=== PATIENT | female | born 1955 | race Caucasian/White ===

== ENCOUNTER 2023-10-07 09:00 | Emergency (ER) | payer MEDICARE, OTHER, SELFPAY ==
--- NOTE | 2023-10-07 09:05 | ED.GENMED ---
History of Present Illness
General
Chief Complaint: Heart Rate Problem
Time Seen by Provider: 10/07/23 09:02
History of Present Illness
History of Present Illness:
HPI: The patient presents with intermittent palpitations, chest discomfort, and shortness of breath. She came in by ambulance however when EMS arrived she was in a normal sinus rhythm. Currently she overall feels improved. She has minimal chest
discomfort described as tightness currently. She reports some chest tightness that is exertional in nature. However she also states that she has been under a lot of stress with her who is back home now after recent cardiac bypass.
EXAM:
GENERAL: Well appearing in no distress
HEENT: Moist oral mucosa
CARDIOVASCULAR: No murmurs, normal heart rate, regular rhythm, No chest wall tenderness
PULMONARY: No respiratory distress, breath sounds are clear and equal
ABDOMEN: Soft with no peritoneal signs, no tenderness
NEUROLOGIC: Excellent strength all extremities, no coordination deficits
PSYCHIATRIC: Appropriate mental status, normal insight and judgement
EXTREMITIES: Nontender, no edema, moves all extremities equally
SKIN: No rash, no lesions
TIME OF INITIAL ENCOUNTER: 9:15 AM
NUMBER AND COMPLEXITY OF PROBLEMS ADDRESSED AT THE ENCOUNTER
� Chronic conditions affecting care: High blood pressure, breast cancer, has had kidney stones
� Acute Exacerbation and/or Progression of Chronic Illness: This is an acute problem
� Differential Diagnosis includes: Anxiety, ACS, pneumonia unlikely, CHF unlikely
AMOUNT AND/OR COMPLEXITY OF DATA TO BE REVIEWED AND ANALYZED
� I performed an independent evaluation of and my interpretation is:
EKG: Sinus 74, left axis deviation, nonspecific ST abnormality
CT:
X-rays: Chest x-ray shows no acute abnormality
Laboratory Studies: CBC is unremarkable, chemistries and 2 troponins are unremarkable
Other:
� Review of other/old records: Echo from 2020 showed stage I diastolic with EF of 60 to 65% and no significant valvular disease
� Clinical information was obtained by an independent historian: None needed
� Prescriptions/Medications Considered but not given:
� Further testing considered but not performed:
RISK OF COMPLICATIONS AND/OR MORBIDITY OR MORTALITY OF PATIENT MANAGEMENT
� Social determinants of health affecting care: Lives at home
� Discussion with other providers: I discussed case with Dr. Mcnair who evaluated the patient in the ED. He does recommend an additional troponin to be checked in the afternoon.
� Escalation of care including admission/observation vs risk of discharge considered: 2 troponins are negative. She does have significant stressors at home. Dr. Mcnair recommended close outpatient follow-up and he will
likely perform stress nuclear in the near future.
Past History
Past History
ED Past Medical History: Cancer (Breast carcinoma), HTN and Other (Kidney stone)
ED Past Surgical History: Other (Left mastectomy with reconstruction and breast implant)
Social History
Tobacco: Non-smoker
Alcohol: None
Drug: None
Living: with family
Employment: Employed
Family History
Family History: Unable to obtain
Phy Exam
Physical Exam
Physical Exam:
See HPI
Course
Orders/Labs/Results
Orders:
Orders
10/07/23 09:03
Electrocardiogram (*1) Urgent
Reason for Study: Chest Pain
EKG- Treatment ONCE
CR Chest - 2 Views Urgent
Comment:
Reason For Exam: sob
10/07/23 09:04
Basic Metabolic Panel Urgent
Complete Blood Count/With Diff Urgent
Magnesium Urgent
NT-proBNP Urgent
TSH Reflex To Free T4 Urgent
Troponin I Urgent
10/07/23 11:36
COVID-19 Antigen Urgent
Source: Nasal Swab
10/07/23 11:51
Holter Monitor and Scan*(3) Routine
Reason for Study: palpitations
Comment: 48 hr
10/07/23 12:46
Troponin I Urgent
10/07/23 13:19
EKG [Electrocardiogram (*1)] Urgent
Reason for Study: Chest Pain
EKG- Treatment ONCE
Abnormal Lab Results
10/07/23
09:04
MCH 31.4 H pg
(27.0-31.0)
Absolute Lymphs (auto) 1.1 L 10^3/uL
(1.2-3.4)
Lymphocytes % 15.5 L %
(20.5-51.1)
Potassium 3.4 L mmol/L
(3.5-5.1)
BUN 21 H mg/dl
(7-17)
Creatinine 0.5 L mg/dL
(0.6-1.0)
Glucose 111 H mg/dl
(70-99)
10/07/23 09:04
10/07/23 09:04
Vital Signs
Initial and Last Documented VS:
Initial Vital Signs
Temp Pulse Resp BP Pulse Ox
98.1 F 68 20 139/85 97
10/07/23 09:15 10/07/23 09:15 10/07/23 09:15 10/07/23 09:15 10/07/23 09:15
Last Documented Vital Signs
Temp Pulse Resp BP Pulse Ox
98.1 F 70 18 111/76 96
10/07/23 09:15 10/07/23 11:32 10/07/23 11:32 10/07/23 11:32 10/07/23 11:32
*Critical Care Note
Total Time (30-74mins, 75-104mins- exclusive of procedures): Not Applicable
ED Attending Note
-
Portions of this chart may have been created with voice recognition software.� Occasional wrong word or��sound alike� substitutions may have occurred due to the inherent limitations of voice recognition software.
Discharge Plan
Departure
Prescriptions:
No Action
chlorthalidone 25 mg Tablet
25 mg PO DAILY
aspirin 81 mg Tablet,Delayed Release (Dr/Ec)
324 mg PO ONCE PRN (Reason: chest pain)
metoprolol succinate 25 mg Tablet Extended Release 24 Hr
25 mg PO DAILY
ergocalciferol (vitamin D2) 1,250 mcg (50,000 unit) Capsule
1,250 mcg PO TH@0800
Referrals:
Cale Silverio MD [Family Provider] -
Interventions
Interventions:
*Risk Screen - Suicide Last Done: 10/07/23 09:15
*General Assessment Last Done: 10/07/23 09:15
*Neglect/Abuse Screening Last Done: 10/07/23 09:15
*ED COVID-19 Vaccine History Last Done: 10/07/23 09:29
ED- Cardiac Assessment Last Done: 10/07/23 09:29
ED- Pulmonary Assessment Last Done: 10/07/23 09:29
Discharge Date and Time
Print Language: TAJIK
[2023-10-07 09:12] LABS: % Basophils 0.5 % (0-2); % Eosinophils 4.6 % (0-6); % Immature Granulocytes 0.4 % (0-0.5); % Lymphocytes 15.5 % (20.5-51.1); % Monocytes 7.2 % (1.7-9.3); % Neutrophils 71.8 % (42.2-75.2); Absolute Eosinophils 0.3 10^3/uL (0-0.7); Absolute Lymphocytes 1.1 10^3/uL (1.2-3.4); Absolute Monocytes 0.5 10^3/uL (0.1-0.6); Absolute Neutrophils 5.3 10^3/uL (1.4-6.5); Hematocrit 41.8 % (37.0-47.0); Hemoglobin 14.6 g/dL (12.0-16.0); Mean Corp Hgb Conc. 34.9 g/dL (33.0-37.0); Mean Corpuscular Hgb 31.4 pg (27.0-31.0); Mean Corpuscular Volume 89.9 fL (81.0-99.0); Mean Platelet Volume 9.3 fL (7.4-10.4); Nucleated Red Blood Cells % 0 %; Platelet Count 252 10^3/uL (130-400); Red Blood Cell Count 4.65 10^6/uL (4.20-5.40); Red Cell Dist. Width 12.2 % (11.5-14.5); White Blood Cell Count 7.3 10^3/uL (4.8-10.8)
[2023-10-07 09:15] VITALS: BP 139/85
[2023-10-07 09:25] LABS: Blood Urea Nitrogen 21 mg/dl (7-17); Carbon Dioxide 30 mmol/L (22-30); Chloride 104 mmol/L (98-107); Glucose 111 mg/dl (70-99); Magnesium 2.1 mg/dl (1.6-2.3); Potassium 3.4 mmol/L (3.5-5.1); Sodium 140 mmol/L (135-145); eGFR > 60.00
[2023-10-07 09:29] VITALS: BMI 26.5
[2023-10-07 09:36] LABS: Troponin I < 0.012 ng/ml
[2023-10-07 10:12] LABS: TSH Reflex To Free T4 0.78 uIU/ml (0.47-4.68)
--- NOTE | 2023-10-07 10:57 | CON.CAR ---
Consultation
Consultation Request
Date/Time Consultation Requested: Oct 06 1029
Date/Time Consultation Performed: Oct 06 1056
Requesting Provider: ER physician
Performing Provider: Adalberto Mcnair
Reason for Consultation: chest tightness
Medical History
-
Chief Complaint: Chest tightness
History of Present Illness:
67-year-old female with history of hypertension and breast cancer who is coming in today for evaluation of chest tightness and palpitations. She tells me that over the last few days she had noticed worsening chest tightness. This could occur at
any time and would occur additionally with exertion. It felt worse when she was out walking with her . 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
Additionally, she tells me that her daughter is getting in approximately 1 week. She feels that she is under a tremendous amount of stress and has been feeling anxious about all of this that has been going on. She thinks that this could be
contributing to her symptoms. Further, she has had a negative stress echocardiogram approximately 6 months ago and ECG today is normal. Overall, when she initially came in she was continue to have some chest discomfort and ECG was normal sinus
rhythm. Initial lab work including troponins were negative. I discussed with her that I believe that this could be most likely related to stress and anxiety with her recently coming home as well as upcoming wedding of her daughter. She
she does think that this is likely a major contributor to the symptoms. However, because she has had worsening symptoms I discussed testing including coronary angiography versus nuclear exercise treadmill test. She would prefer to have the nuclear
exercise treadmill test as she thinks that these symptoms are most likely related to her anxiety and increased level of stress. I discussed with the ED physician to obtain 1 more troponin and if negative then we will proceed with nuclear exercise
treadmill test next week. I have in the meantime asked her to take it easy over the weekend with no significant exertion.
Past Medical History
Past Medical History: HTN and Other (Breast CA and kidney stone)
Past Surgical History: Other (left mastectomy )
Social History
Tobacco: Non-Smoker
Alcohol: None
Drug: None
Personal:
Living: With Family
Family History
Family History: Reviewed & Not Pertinent
Allergies / Home Medications
Allergy/AdvReac Type Severity Reaction Status Date / Time
Tetracyclines Allergy Unknown Unknown Verified 10/07/23 09:15
azithromycin Allergy becomes Verified 10/07/23 09:15
hyper,heart
pounds
cefadroxil [From Duricef] Allergy Unknown Verified 10/07/23 09:15
Cephalosporins Allergy Unknown Verified 10/07/23 09:15
doxycycline Allergy facial Verified 10/07/23 09:15
swelling
penicillin G Allergy Rash Verified 10/07/23 09:15
Penicillins Allergy facial Verified 10/07/23 09:15
rash as a
child
z-pack Allergy becomes Uncoded 10/07/23 09:15
hyper,heart
pounds
�Medication �Instructions �Recorded �Confirmed �Type
aspirin 81 mg tablet,delayed 324 mg PO ONCE PRN chest pain 10/07/23 10/07/23 History
release
chlorthalidone 25 mg tablet 25 mg PO DAILY 10/07/23 10/07/23 History
ergocalciferol (vitamin D2) 1,250 1,250 mcg PO TH@0800 10/07/23 10/07/23 History
mcg (50,000 unit) capsule
metoprolol succinate 25 mg 25 mg PO DAILY 10/07/23 10/07/23 History
tablet,extended release 24 hr
Review of Systems
-
All other systems: Negative unless noted
Physical Exam
Vital Signs
Temp Pulse Resp BP Pulse Ox
98.1 F 68 20 139/85 97
10/07/23 09:15 10/07/23 09:15 10/07/23 09:15 10/07/23 09:15 10/07/23 09:29
Lab Results
10/07/23 09:04
10/07/23 09:04
Troponin I < 0.012 ng/ml 10/07/23 09:04
Ycu-C-Hhklschjyxs Pept 24.0 pg/ml 10/07/23 09:04
Physical Exam
General: Well Developed and Well Nourished
HEENT: Normocephalic and Anicteric
Respiratory: Clear and Non Labored Respirations
Cardiac: S1/S2 and Regular Rhythm
GI: Soft
Musculoskeletal: No Clubbing, No Cyanosis, Edema and No Edema
Skin: Warm and Dry
Neuro: AO x 3
Psych: Calm
Impression / Plan
-
67-year-old female with history of hypertension and breast cancer who is coming in today for evaluation of chest tightness and palpitations. After discussion with the patient about her increased level of stress with her 's recent bypass
surgery and upcoming wedding of her daughter she does believe that this is most likely related to that stress and anxiety has been associated with that. Again, I discussed coronary angiography versus exercise nuclear stress test and she would
prefer a more noninvasive approach rather than undergoing a procedure at this point. She does believe that this is most likely related to the increased stress and anxiety that has been going on.
Chest tightness palpitations and SOB
- Nuclear exercise stress test October 10 12:20 pm if neg troponin
- follow up thereafter
- Holter Monitor 48 hr
TTE 05/04/2023 CONCLUSIONS
Normal left ventricular size and systolic function. No regional wall motion
abnormalities are seen. LV ejection fraction is 60-65% by visual assessment.
Mild concentric left ventricular hypertrophy. Normal diastolic function.
Normal right ventricular size and function.
Mild mitral regurgitation.
Compared to the previous echo 08/07/2020, there is no significant change.
Stress Echo Feb 2023: No echocardiographic evidence of ischemia
Data Reviewed
-
EKG: Tracing Personally Visualized and interpreted (sr)
Medical Tests (Nuc Med, Echo etc): Report Reviewed by me
Labs: Labs Reviewed by me
[2023-10-07 11:32] VITALS: BP 111/76
[2023-10-07 12:07] LABS: COVID-19 Antigen Negative (Negative)
[2023-10-07 12:50] VITALS: BP 109/69
[2023-10-07 13:31] LABS: Troponin I < 0.012 ng/ml
[2023-10-07 13:53] VITALS: BP 112/74
== END 2023-10-07 13:56 | disposition home or self-care (01) ==
LOC: EMR 09:00
PROVIDERS: EMERGENCY PHYSICIAN Emergency Medicine; FAMILY PHYSICIAN Family Medicine
DX: R00.2 Palpitations (principal); R07.89 Other chest pain; R06.02 Shortness of breath; I10 Essential (primary) hypertension; I34.0 Nonrheumatic mitral (valve) insufficiency; Z85.3 Personal history of malignant neoplasm of breast; Z87.442 Personal history of urinary calculi; Z90.12 Acquired absence of left breast and nipple
CPT/HCPCS: 99283; 71046; 80048; 83735; 83880; 84443; 84484; 85025; 87811; 93005; 93225; 93226

== ENCOUNTER → 2023-10-11 11:58 | Outpatient (REF) | payer MEDICARE, OTHER, SELFPAY | LOC: DHCBC/DCA 11:58 | PROVIDERS: ATTENDING PHYSICIAN Internal Medicine Cardiovascular Disease; FAMILY PHYSICIAN Family Medicine | DX: R94.31 Abnormal electrocardiogram [ECG] [EKG] (principal); I10 Essential (primary) hypertension; R06.09 Other forms of dyspnea; R00.2 Palpitations; R07.89 Other chest pain | CPT/HCPCS: 78452; 93017; A9500 ==

== ENCOUNTER 2023-10-18 07:30 | Day surgery (SDC) | payer MEDICARE, OTHER, SELFPAY ==
[2023-10-18] VITALS (14 sets, daily range): BP systolic 96–134; BP diastolic 55–73; BMI 28.0
[2023-10-18] MEDS: NSS 215 ML IV (08:18)
[2023-10-18 10:11] LABS: ACT-LR - POC 305 Seconds (116-155)
[2023-10-18] MEDS: NSS 108 IV (10:30)
--- NOTE | 2023-10-18 11:14 | ITS.CL.CATH ---
[facility] - Catheterization
Cardiac Catheterization
Procedure Report:
CARDIAC CATHETERIZATION AND ANGIOPLASTY REPORT
Date of Procedure: 10/18/2023
Referring: Adalberto Mcnair MD
Indication: Exertional dyspnea with abnormal nuclear stress test suggesting anterior ischemia
HEMODYNAMIC DATA
AO: 122/58
LV: 122/15
LEFT VENTRICULOGRAPHY: Normal left ventricular wall motion with EF 67%
CORONARY ANGIOGRAPHY
Dominance: Right
Left Main: Normal
LAD: Mild to moderate calcification of the proximal to mid LAD. There is 50% stenosis in the mid LAD spanning the takeoff of S2 and extending to the origin of the moderate-sized D1. There is a second 80% stenosis in the mid LAD distal to a twig
like D2
Circumflex: A moderate to large ramus intermedius has 30 to 40% proximal stenosis. The circumflex gives rise to a medium sized OM1 and a small OM 2 and has trivial luminal disease.
RCA: Large dominant vessel with 20% mid stenosis. The large PDA and large posterolateral system are free of disease.
Angioplasty: At the conclusion the diagnostic study, we proceeded with LAD intervention. Heparin was used for coagulation. Plavix 600 mg was administered the procedure conclusion. A 6 Trin[place] EBU 3.5 guide catheter was advanced to the left
coronary ostium. A BMW wire was advanced into the distal LAD. We attempted to advance a second BMW wire into the moderate-sized first diagonal branch as we would need to stent across this branch vessel. We were unable to get a wire into this
branch as the more proximal stenosis straightened out the tip of the coronary wire thereby not allowing us to access the diagonal branch. Predilatation of both mid LAD lesions was accomplished with serial inflations using a 2.25 x 12 trek balloon
to 12 suzie. We then placed a 3.25 x 23 Xience ESTRELLA into the LAD to cover both lesions. The stent was deployed at 14 suzie then postdilated with a 3.25 NC trek to 17 suzie. Angiography demonstrated an excellent result with no residual stenosis. The
moderate-sized D1 had some ostial plaque shift but remained patent with normal flow. The twig like D2 was flush occluded and was not worthy of rescue attempts as the vessel diameter was likely less than 1.0 mm. Patient had mild chest discomfort
likely due to combination of vessel stretching and loss of this twig like D2.
Closure Device: None-the procedure was performed via the right radial artery
Radiation (mGy): 355
DAP (cm2.Gy): 25.6
Fluoroscopy time: 10.5 minutes
CONCLUSIONS
1: Normal left ventricular function with EF 67%
2: Single-vessel CAD as described tandem high-grade mid LAD lesions as described.
3. Successful stenting of tandem mid LAD lesions using 3.25 x 23 Xience ESTRELLA. A twig like second diagonal branch was flush occluded with no attempt made to rescue as the vessel size was 1.0 mm or less and the distribution very small. We will
monitor the patient overnight and check cardiac enzymes
4. Continue DAPT for 6-12 months and continue risk factor modification efforts
Copy to: Adalberto Mcnair MD, Jaspreet Silverio MD
Damián Islas MD, [facility], [facility]
[2023-10-18] MEDS: NSS 1000 IV (12:05)
--- NOTE | 2023-10-18 13:40 | CM ---
Reviewed chart. Met with Mrs. Deras to review discharge plans. She states prior to admission she resides with her spouse in a two story home with one step to enter. She states she has a full flight of steps to get to bedroom/full bathroom. She
states she has a powder room on the first floor. She states prior to admission she was independent with ambulation and adls. She states she does not have any DME in the home. She states she has a prescription plan and uses [facility]. The
discharge plan is to return home with her spouse when medically stable.
--- NOTE | 2023-10-18 14:12 | PTCARENOTE ---
Pt received post cath with right radial band intact. Site clean and dry with no hematoma. Pt c/o of mild chest burning. O2 on at 2L on arrival. Pt later stated discomfort was completely gone and O2 removed. Pt oob to the bathroom, gait steady.
[2023-10-18 15:50] LABS: ACT-LR - POC > 397 Seconds (116-155)
[2023-10-18] MEDS: LIPITOR 80 MG PO (17:07)
[2023-10-18 17:25] LABS: Total CK 72 U/L (30-135)
[2023-10-18 18:04] LABS: CKMB 5.3 ng/ml (0.0-2.4)
[2023-10-18] MEDS: MAALOX 30 ML PO (19:40)
--- NOTE | 2023-10-18 23:52 | PTCARENOTE ---
Pt received at start of shift, HR SR. Pt c/o 2 to sometimes 3 out of 10 CP/burning in chest since cath. Pt refusing any pain medicine at this time. Pt informed RN that she takes tums regularly at home - spoke to [facility] Ed MORGNA Connor ordered
and administered - see JUL. Upon reassessment, pt lying flat and rates pain 0/10. R radial cath site dressing CDI - soft, nontender. VSS. Pt denies any CP, SOB, or lightheadedness/dizziness at this time. Informed to notify RN if any changes, call
montalvo within reach.
[2023-10-19 04:20] VITALS: BP 104/65
[2023-10-19 04:33] VITALS: BMI 28.3
[2023-10-19 05:41] LABS: Blood Urea Nitrogen 19 mg/dl (7-17); Calcium 9.2 mg/dl (8.4-10.2); Carbon Dioxide 30 mmol/L (22-30); Chloride 102 mmol/L (98-107); Estimated Creatinine Clearance 86 ml/min; Glucose 96 mg/dl (70-99); HDL Cholesterol 46 mg/dl; LDL Cholesterol, Calculated 109 mg/dl; Potassium 2.8 mmol/L (3.5-5.1); Sodium 138 mmol/L (135-145); Total CK 238 U/L (30-135); Total Cholesterol 180 mg/dl (50-199); Triglyceride 126 mg/dl (10-149); Very Low Density Lipoprotein 25 mg/dl (0-30); eGFR > 60.00
[2023-10-19 05:44] LABS: Hematocrit 37.7 % (37.0-47.0); Hemoglobin 12.9 g/dL (12.0-16.0); Mean Corp Hgb Conc. 34.2 g/dL (33.0-37.0); Mean Corpuscular Hgb 31.2 pg (27.0-31.0); Mean Corpuscular Volume 91.3 fL (81.0-99.0); Platelet Count 222 10^3/uL (130-400); Red Blood Cell Count 4.13 10^6/uL (4.20-5.40); Red Cell Dist. Width 12.2 % (11.5-14.5); White Blood Cell Count 8.1 10^3/uL (4.8-10.8)
[2023-10-19 06:06] LABS: CKMB 26.5 ng/ml (0.0-2.4)
[2023-10-19] MEDS: Hygroton 25 MG PO (07:49)
[2023-10-19] MEDS: PLAVIX 75 MG PO (07:49)
[2023-10-19] MEDS: TOPROL XL 25 MG PO (07:49)
[2023-10-19] MEDS: LOW STRENGTH ASPIRIN 81 MG PO (07:49)
[2023-10-19 07:52] VITALS: BP 120/63
[2023-10-19] MEDS: KCL 40 MEQ PO ×2 (08:37→11:36)
--- NOTE | 2023-10-19 10:10 | W.PN.CARDCBS ---
Addendum entered and electronically signed by Aldo Carvalho MD 10/19/23 12:51:
67 yo female with CAD, HTN admitted following LAD PCI. Complicated by very small 2nd diagonal artery flush occlusion. She had some chest pain yesterday. No CP today. Exam with RRR, no murmurs, no edema. CKMB was 26 this AM. K was also 2.8.
Continue ASA, Plavix, metoprolol.
Trend CKMB to peak. Ambulate hallway.
Replete K, and replete labs. She is on chlorthalindone and likely need KCl on discharge.
Decision on discharge today vs tomorrow based on results of follow up labs.
Original Note:
Today's Communication / Plan
-
Continue to follow CK/MB to peak
replace potassium and repeat
will monitor on tele another 24 hours
Impression / Plan
-
PCP: Cale Silverio MD
CDY: Adalberto Mcnair MD
67 y/o PMH sig HTN, with increased stress/anxiety the last few weeks ( had heart surgery, daughter recently last week), seen in ER 2 weeks ago for exertional cp/palps. Ruled out for ID but followup NST on 10/10 with apical ischemia, EF
70%. Presented to [facility] tender restoration labor yesterday, s/p angioplasty/ESTRELLA to LAD, complicated by very small 2nd diagonal artery flush occlusion. She had moderate 5/10 chest pain post procedure that has since diminished in severity but still having intermittent low
level chest burning/discomfort. CK/MB rising with MB 26.5 this morning.
IMPRESSION/PLAN:
CAD/Abnormal NST
s/p LAD PCI (10/18/23)
complicated with tiny diagonal flush occlusion
ruling in for periprocedural ID with CK 238/MB 26.5 and rising
EKG- NSR w/anterolateral TWI that are mildly deeper than pre-cath
tele overnight NSR 60s, no vt/arrhythmia
Will trend CK/MB to peak
DAPT w/asa, plavix
cardiac rehab consulted
followup with PROFESSOR OF OCEANOGRAPHY at [facility] in 2 weeks
will continue to monitor another 24 hours- pt is agreeable and feels more comfortable staying after discussion
Hypokalemia- was 3.5 in ER, now 2.8
replaced this morning and will repeat at noon with next set of labs
likely from chlorthalidone- would consider holding and get repeat outpt BMP in a few days-
if she needs BP support, consider ADI/ARB
HLD- LDL 109, started atorvastatin 80mg/d
she states she had been on a statin in the remote past- not sure which one- and had myalgia- willing to try again so will continue and monitor
HTN- BP stable overnight
Progress Note - Content Analyst
Subjective
Date of Service: October 19, 2023
intermittent low level chest discomfort overnight and today
cath site stable
oob ambulating
Objective
Labs:
10/19/23 04:28
Labs
Hgb 12.9 g/dL (12.0-16.0) 10/19/23 04:28
Hct 37.7 % (37.0-47.0) 10/19/23 04:28
Plt Count 222 10^3/uL (130-400) 10/19/23 04:28
Sodium 138 mmol/L (135-145) 10/19/23 04:28
Potassium 2.8 mmol/L (3.5-5.1) L 10/19/23 04:28
BUN 19 mg/dl (7-17) H 10/19/23 04:28
Creatinine 0.4 mg/dL (0.6-1.0) L 10/19/23 04:28
Glucose 96 mg/dl (70-99) 10/19/23 04:28
Vital Signs and I&O:
Vital Signs
Temp Pulse Resp BP Pulse Ox
97.9 F 71 20 104/65 96
10/19/23 08:06 10/19/23 04:30 10/19/23 08:06 10/19/23 04:20 10/19/23 04:20
Vital Signs
Temp Pulse Resp BP Pulse Ox
97.9 F 71 20 104/65 96
10/19/23 08:06 10/19/23 04:30 10/19/23 08:06 10/19/23 04:20 10/19/23 04:20
Intake & Output
10/17/23 10/18/23 10/19/23 10/20/23
06:59 06:59 06:59 06:59
Intake Total 563 / 563
Balance 563 / 563
Physical Exam
Physical Exam
AAOx3, MAEE 5/5
RRR S1 S2 no murmurs
CTA bilat, non labored
soft abd, + bs
right radial cath site without ht/bleeding, non tender
bilat extremities w/palpable distal pulses, no edema
[2023-10-19 11:23] VITALS: BP 109/73
[2023-10-19 14:03] LABS: Potassium 3.8 mmol/L (3.5-5.1); Total CK 234 U/L (30-135)
[2023-10-19 16:06] VITALS: BP 122/68
[2023-10-19] MEDS: PROTONIX 40 MG PO (16:28)
[2023-10-19] MEDS: LIPITOR 80 MG PO (17:49)
[2023-10-19 19:01] VITALS: BP 121/71
[2023-10-19 22:23] VITALS: BP 108/56
--- NOTE | 2023-10-20 00:35 | PTCARENOTE ---
No complaints of chest pain, NSR on the monitor, VSS. Right radial cath site LAURA with no S&S hematoma, good radial pulse and sensation assessed. Pt. currently sleeping.
[2023-10-20 03:54] VITALS: BP 119/62
[2023-10-20 04:34] LABS: Hematocrit 38.5 % (37.0-47.0); Hemoglobin 13.6 g/dL (12.0-16.0); Mean Corp Hgb Conc. 35.3 g/dL (33.0-37.0); Mean Corpuscular Hgb 32.5 pg (27.0-31.0); Mean Corpuscular Volume 92.1 fL (81.0-99.0); Platelet Count 214 10^3/uL (130-400); Red Blood Cell Count 4.18 10^6/uL (4.20-5.40); Red Cell Dist. Width 12.4 % (11.5-14.5); White Blood Cell Count 8.8 10^3/uL (4.8-10.8)
[2023-10-20 04:58] LABS: Blood Urea Nitrogen 17 mg/dl (7-17); Calcium 9.7 mg/dl (8.4-10.2); Carbon Dioxide 26 mmol/L (22-30); Chloride 104 mmol/L (98-107); Estimated Creatinine Clearance 84 ml/min; Glucose 101 mg/dl (70-99); Magnesium 2.1 mg/dl (1.6-2.3); Potassium 3.6 mmol/L (3.5-5.1); Sodium 138 mmol/L (135-145); eGFR > 60.00
--- NOTE | 2023-10-20 07:25 | W.PN.CD ---
Today's Communication / Plan
-
add kcl 20qd to outpt meds
DAPT
Home today
Impression / Plan
-
PCP: Cale Silverio MD
CDY: Adalberto Mcnair MD
67 y/o PMH sig HTN, with increased stress/anxiety the last few weeks ( had heart surgery, daughter recently last week), seen in ER 2 weeks ago for exertional cp/palps. Ruled out for FL but followup NST on 10/10 with apical ischemia, EF
70%. Presented to skilled labor yesterday, s/p angioplasty/ESTRELLA to LAD, complicated by very small 2nd diagonal artery flush occlusion. She had moderate 5/10 chest pain post procedure that has since diminished in severity but still having intermittent low
level chest burning/discomfort. CK/MB rising with MB 26.5 this morning.
IMPRESSION/PLAN:
CAD/Abnormal NST
s/p LAD PCI (10/18/23)
complicated with tiny diagonal flush occlusion with Type IV FL (peak CK MB 26)
EKG- NSR w/Tw inversion V1, V2 similar to precath
tele overnight NSR 60s, no vt/arrhythmia
DAPT w/asa, plavix
cardiac rehab consulted
followup with CREATIVE ENGAGEMENT DIRECTOR at [facility] in 2 weeks
Hypokalemia- was 3.5 in ER, 2.8 yest and 3.6 this AM
replaced this morning and will repeat at noon with next set of labs
likely from chlorthalidone- resume on discharge and add KCL 20mEq daily
if she needs BP support, consider ADI/ARB
HLD- LDL 109, started atorvastatin 80mg/d
she states she had been on a statin in the remote past- not sure which one- and had myalgia- willing to try again so will continue and monitor
HTN- BP stable
Physical Exam
Vital Signs/Labs
Vital Signs
Temp Pulse Resp BP Pulse Ox
98.5 F 67 16 119/62 96
10/20/23 03:55 10/20/23 04:00 10/20/23 03:55 10/20/23 03:54 10/20/23 03:55
10/19/23 10/20/23 10/21/23
06:59 06:59 06:59
Actual Weight 159 lb 9.835 oz
10/20/23 04:14
10/20/23 04:14
Magnesium 2.1 mg/dl (1.6-2.3) 10/20/23 04:14
Triglycerides 126 mg/dl (10-149) 10/19/23 04:28
LDL Cholesterol, Calc 109 mg/dl 10/19/23 04:28
VLDL Cholesterol, Calc 25 mg/dl (0-30) 10/19/23 04:28
HDL Cholesterol 46 mg/dl 10/19/23 04:28
Physical Exam
Constitutional: No acute distress and Comfortable
EENT: Anicteric
Cardiovascular: Rhythm & rate is regular, Pedal edema is absent and Murmur/rub/gallop absent
Respiratory: Lungs clear to auscul.
GI: Non tender
Neuro/Psych: Motor deficits absent
Data Reviewed
-
Date of Service: October 20, 2023
[2023-10-20 07:52] VITALS: BP 95/62
[2023-10-20] MEDS: PROTONIX 40 MG PO (08:47)
[2023-10-20] MEDS: LOW STRENGTH ASPIRIN 81 MG PO (08:47)
[2023-10-20] MEDS: KCL 40 MEQ PO (08:47)
[2023-10-20] MEDS: TOPROL XL 25 MG PO (08:47)
[2023-10-20] MEDS: PLAVIX 75 MG PO (08:47)
--- NOTE | 2023-10-20 09:06 | CM ---
Reviewed chart. Sarai with Mrs. Deras to review discharge plans. She states she is feeling well and maybe able to go home soon. Prior to admission she resides with her spouse in a two story home with one step to enter. She has a full flight of
steps to get to bedroom/full bathroom. She has a powder room on the first floor. Prior to admission she was independent with ambulation and adls. She states she has been ambulating here without any problem. She does not have any DME in the home.
She has a prescription plan and uses [facility]. The discharge plan is to return home with her spouse when medically stable.
--- NOTE | 2023-10-20 09:19 | PTCARENOTE ---
received patient this am, today is patient Birthday! monitor shows NSR, VSS, right radial LAURA, good distal pulse, no hematoma,no ecchymosis. patient would like to be discharged today.
--- NOTE | 2023-10-20 09:54 | PTCARENOTE ---
D/C instructions given to patient and , both verbalizes understanding. INT D/C'd, telemetry D/C'd. personal belongings packed and sent home with patient. D/C to home via wc accompanied by vol. services.
--- NOTE | 2023-10-20 12:21 | W.DS.TRANS ---
DC Summary - Prop Setter
-
Discharge Instructions:
Discharge Diagnosis/Procedures Angioplasty and stent to Left Anterior
Descending artery
Diet Low Cholesterol
Driving Restrictions No driving for 24 hours
Blood Work BMP in 1 week- results to Dr. Mcnair
Other Services Cardiac Rehab
Instructions:
Stand-Alone Forms: DC Instructions- Cath/EP Lab
Changes to Home Medications: Yes
Discharge Medications:
DC Medications w/original date entered in [facility]
chlorthalidone 25 mg tablet 25 mg PO DAILY 10/07/23
ergocalciferol (vitamin D2) 1,250 mcg (50,000 unit) capsule 1,250 mcg PO TH@0800 10/07/23
metoprolol succinate 25 mg tablet,extended release 24 hr 25 mg PO DAILY 10/07/23
aspirin 81 mg capsule 81 mg PO DAILY 10/18/23
atorvastatin 80 mg tablet 80 mg PO QPM #90 tabs 10/19/23
clopidogrel 75 mg tablet 75 mg PO DAILY #90 tabs 10/19/23
nitroglycerin 0.4 mg sublingual tablet 0.4 mg sublingual [id number] PRN chest pain #25 tabs 10/19/23
pantoprazole 40 mg tablet,delayed release 40 mg PO DAILY #90 tabs 10/19/23
potassium chloride 20 mEq tablet,extended release(part/cryst) 40 meq (2 x 20 mEq) PO DAILY #90 tabs 10/19/23
Home Medication Changes
new to Plavix, nitro, Protonix, potassium, atorvastatin
Pending Results: No
== END 2023-10-20 11:54 | disposition home or self-care (01) ==
LOC: CATH 07:30
PROVIDERS: Nurse Practitioner; ATTENDING PHYSICIAN Internal Medicine Cardiovascular Disease; FAMILY PHYSICIAN Family Medicine
DX: I25.10 Atherosclerotic heart disease of native coronary artery without angina pectoris (principal); R06.09 Other forms of dyspnea; R07.89 Other chest pain; I10 Essential (primary) hypertension; Z85.3 Personal history of malignant neoplasm of breast; Z79.82 Long term (current) use of aspirin; Z79.02 Long term (current) use of antithrombotics/antiplatelets
CPT/HCPCS: 80048; 80061; 82550; 82553; 83735; 84132; 85027; 85347; 93005; 93458; C1725; C1769; C1874; C1894; C9600; Q9967

== ENCOUNTER 2023-11-18 15:45 | Outpatient (RCR) | payer MEDICARE, OTHER, SELFPAY | END 2023-11-18 23:59 | disposition home or self-care (01) | LOC: CRHB 15:45 | PROVIDERS: Internal Medicine; ATTENDING PHYSICIAN Internal Medicine Cardiovascular Disease; FAMILY PHYSICIAN Family Medicine | DX: I25.10 Atherosclerotic heart disease of native coronary artery without angina pectoris (principal); Z95.5 Presence of coronary angioplasty implant and graft | CPT/HCPCS: G0422; G0423 ==

== ENCOUNTER 2023-12-20 10:55 | Outpatient (RCR) | payer MEDICARE, OTHER, SELFPAY | END 2023-12-20 23:59 | disposition home or self-care (01) | LOC: CRHB 10:55 | PROVIDERS: ATTENDING PHYSICIAN Internal Medicine Cardiovascular Disease; FAMILY PHYSICIAN Family Medicine | DX: I25.10 Atherosclerotic heart disease of native coronary artery without angina pectoris (principal); Z95.5 Presence of coronary angioplasty implant and graft | CPT/HCPCS: G0422; G0423 ==

== ENCOUNTER → 2024-01-18 10:11 | Outpatient (REF) | payer MEDICARE, OTHER, SELFPAY | LOC: HWRCS 10:11 | PROVIDERS: ATTENDING PHYSICIAN Internal Medicine; FAMILY PHYSICIAN Family Medicine | DX: I25.10 Atherosclerotic heart disease of native coronary artery without angina pectoris (principal) | CPT/HCPCS: 93306 ==

== ENCOUNTER 2024-01-19 10:03 | Outpatient (RCR) | payer MEDICARE, OTHER, SELFPAY | END 2024-01-19 23:59 | disposition home or self-care (01) | LOC: CRHB 10:03 | PROVIDERS: ATTENDING PHYSICIAN Internal Medicine Cardiovascular Disease; FAMILY PHYSICIAN Family Medicine | DX: I25.10 Atherosclerotic heart disease of native coronary artery without angina pectoris (principal); Z95.5 Presence of coronary angioplasty implant and graft | CPT/HCPCS: G0422; G0423 ==

== ENCOUNTER 2024-02-14 10:55 | Outpatient (RCR) | payer MEDICARE, OTHER, SELFPAY | END 2024-02-14 23:59 | disposition home or self-care (01) | LOC: CRHB 10:55 | PROVIDERS: ATTENDING PHYSICIAN Internal Medicine Cardiovascular Disease; FAMILY PHYSICIAN Family Medicine | DX: I25.10 Atherosclerotic heart disease of native coronary artery without angina pectoris (principal); Z95.5 Presence of coronary angioplasty implant and graft (principal) | CPT/HCPCS: G0422; G0423 ==

== ENCOUNTER 2024-02-28 10:45 | Outpatient (RCR) | payer MEDICARE, OTHER, SELFPAY | END 2024-03-01 14:39 | disposition home or self-care (01) | LOC: CRHB 10:45 | PROVIDERS: ATTENDING PHYSICIAN Internal Medicine Cardiovascular Disease; FAMILY PHYSICIAN Family Medicine | DX: I25.10 Atherosclerotic heart disease of native coronary artery without angina pectoris (principal); Z95.5 Presence of coronary angioplasty implant and graft | CPT/HCPCS: G0422; G0423 ==

== ENCOUNTER → 2024-03-29 11:44 | Outpatient (REF) | payer MEDICARE, OTHER, SELFPAY | LOC: HWRAD 11:44 | PROVIDERS: ATTENDING PHYSICIAN Family Medicine | DX: I10 Essential (primary) hypertension (principal); I25.10 Atherosclerotic heart disease of native coronary artery without angina pectoris; M25.511 Pain in right shoulder; R20.0 Anesthesia of skin | CPT/HCPCS: 73030 ==

== ENCOUNTER → 2024-04-13 14:31 | Outpatient (REF) | payer MEDICARE, OTHER, SELFPAY | LOC: PAVMRI 14:31 | PROVIDERS: ATTENDING PHYSICIAN Student in an Organized Health Care Education/Training Program; FAMILY PHYSICIAN Family Medicine | DX: M25.511 Pain in right shoulder (principal) | CPT/HCPCS: 73221 ==

== ENCOUNTER → 2024-04-26 13:05 | Outpatient (REF) | payer MEDICARE, OTHER, SELFPAY | LOC: HWWDC 13:05 | PROVIDERS: ATTENDING PHYSICIAN Family Medicine | DX: Z12.31 Encounter for screening mammogram for malignant neoplasm of breast (principal) | CPT/HCPCS: 77063; 77067 ==

== ENCOUNTER 2024-05-09 19:08 | Emergency (ER) | payer MEDICARE, OTHER, SELFPAY ==
[2024-05-09] VITALS (7 sets, daily range): BP systolic 142–158; BP diastolic 73–89; BMI 26.3
--- NOTE | 2024-05-09 19:24 | ED.GENMED ---
ED Provider Triage
<Debra Glez PA-C - Last Filed: 05/09/24 19:29>
-
Patient seen by provider in Triage?: Seen in Triage
Attestation: A medical screening examination has been initiated by a qualified medical provider. Based on the assessment performed at this time, it has been determined that an emergent medical condition may exist and the patient has been informed
that further medical evaluation and possible additional diagnostic testing may be needed.
HPI: 68yoF here with n/v/d since yesterday. Spiked a fever of 103.3 this afternoon. Had a cortisone shot in the R shoulder on 04/30/24 and has been feeling unwell since.
GENERAL: Alert , in no apparent distress
EYE: No visual abnormalities.
NECK: Trachea midline
ENT: No visible abnormalities.
LUNGS: No acute respiratory distress
NEUROLOGICAL: Alert and oriented
SKIN: Skin intact. No visible changes.
MUSCULOSKELETAL: Moving extremities normally
PSYCH: Normal and appropriate interaction.
This is a medical evaluation conducted in person to initiate diagnostic evaluation and provide initial therapeutics. Please see further documentation by the treating clinician.
CBC, CMP, and COVID/flu swab ordered.
History of Present Illness
<Debra Glez PA-C - Last Filed: 05/09/24 19:29>
General
Chief Complaint: Fever
Time Seen by Provider: 05/09/24 20:25
<Alicia Covarrubias NP - Last Filed: 05/10/24 01:21>
General
Source: patient
Exam Limitations: none
Nursing documentation reviewed up to this point in time: agreed with
History of Present Illness
History of Present Illness:
68-year-old female with history of HTN, left mass ectomy for breast cancer, hysterectomy, presents stating she developed a fever last night of 101, today it was 103.3 and several episodes of vomitingShe took Tylenol at 5:15 PM. She vomited shortly
after taking the Tylenol and has had no vomiting since. Yesterday she had a small amount of diarrhea in the morning and again today in the morning only. She denies chest pain or trouble breathing. She denies abdominal pain.
Temp at this time is 99.4
2 days ago she saw her family doctor for burning with urination and he put her on nitrofurantoin. She has had a total of 4 doses but stopped it after this morning's dose as she got a call back saying her urine was negative.
Past History
<Debra Glez PA-C - Last Filed: 05/09/24 19:29>
Past History
ED Past Medical History: Cancer (Breast carcinoma), HTN and Other (Kidney stone)
ED Past Surgical History: Other (Left mastectomy with reconstruction and breast implant)
Social History
Tobacco: Non-smoker
Alcohol: None
Drug: None
Living: with family
Employment: Employed
Family History
Family History: Unable to obtain
Review of Systems
<Alicia Covarrubias SHIFT SUPERVISOR [employer]ELTING - Last Filed: 05/10/24 01:21>
Review of Systems
Allergies reviewed?: Yes
All Other Systems: ROS reviewed and negative except as documented in HPI and ROS
Constitutional: Reports fever
EENT: Denies sore throat
Respiratory: Denies trouble breathing
Cardiac: Denies chest pain
ABD/GI: Reports nausea, vomiting and diarrhea; Denies abdominal pain, bloody stools or black stools
: Denies dysuria, frequency, flank pain or difficulty voiding
Musculoskeletal: Reports no symptoms
Skin: Reports no symptoms
Neurological: Reports no symptoms
Phy Exam
<Alicia Covarrubias, SHIFT SUPERVISOR [employer]TING - Last Filed: 05/10/24 01:21>
Physical Exam
Physical Exam:
GENERAL: No acute distress. A&Ox3.
CONSTITUTIONAL: Afebrile.
EYES: Clear, conjunctivae normal
ENMT: moist mucus membranes
RESPIRATORY: Regular respirations, nonlabored, lungs clear.
CARDIOVASCULAR: Regular rate and rhythm, no murmurs, no rubs.
GI: Soft, nontender, normal BS
MUSCULOSKELETAL: Moves with ease. Well perfused.
SKIN: Warm, dry, pink
PSYCH: Normal mood and affect. Well kept, interactive and appropriate
NEUROLOGIC: Awake, alert and oriented. No focal neurological deficits
Course
<Debra Glez PA-C - Last Filed: 05/09/24 19:29>
Orders/Labs/Results
Orders:
Orders
05/09/24 19:33
Complete Blood Count/With Diff Urgent
Comprehensive Metabolic Panel Urgent
Influenza A+B Rapid Molecular Urgent
YUMIKO Source: Nasal Swab
Specimen Description:
05/09/24 19:34
COVID-19 Antigen Urgent
Source: Nasal Swab
05/09/24 20:35
Urinalysis Reflex To Culture Urgent
Date Specimen was Collected: 05/09/24
Time Specimen was Collected: 20:34
Urine Microscopic Reflex Cult Urgent
05/09/24 20:41
0.9% Sodium Chloride 1000 ml [Nss] 1,000 ml IV BOLUS
05/09/24 20:42
Ondansetron Injectable [Zofran] 4 mg IV NOW STA
05/09/24 21:56
Acetaminophen [Tylenol] 650 mg PO NOW STA
05/09/24 21:57
CT Abd/pel Without Iv Or Oral Urgent
Comment:
Reason For Exam: fever, painful urination, hx stones
Abnormal Lab Results
05/09/24 05/09/24
19:33 20:35
Abs Immat Gran (auto) 0.1 H 10^3/uL
(0-0.05)
Absolute Neuts (auto) 7.8 H 10^3/uL
(1.4-6.5)
Absolute Lymphs (auto) 0.3 L 10^3/uL
(1.2-3.4)
Absolute Monos (auto) 0.9 H 10^3/uL
(0.1-0.6)
Immature Gran % 0.6 H %
(0-0.5)
Neutrophils % 83.0 H %
(42.2-75.2)
Lymphocytes % 2.8 L %
(20.5-51.1)
Monocytes % 10.0 H %
(1.7-9.3)
Creatinine 0.5 L mg/dL
(0.6-1.0)
Glucose 121 H mg/dl
(70-99)
AST 50 H U/L
(14-36)
ALT 43 H U/L
(0-35)
Urine Ketones 2+ A
(Negative)
Ur Occult Blood Reflex 2+ A
(Negative)
Urine RBC 7-10 A /HPF
(0-2)
05/09/24 19:33
05/09/24 19:33
Vital Signs
Initial and Last Documented VS:
Initial Vital Signs
Temp Pulse Resp BP Pulse Ox
99.0 F 109 18 143/89 99
05/09/24 19:20 05/09/24 19:20 05/09/24 19:20 05/09/24 19:20 05/09/24 19:20
Last Documented Vital Signs
Temp Pulse Resp BP Pulse Ox
98.5 F 94 18 142/73 95
05/09/24 21:46 05/09/24 23:22 05/09/24 23:22 05/09/24 23:22 05/09/24 23:22
<Alicia Covarrubias, SHIFT SUPER[employer]OR [employer]TING - Last Filed: 05/10/24 01:21>
Orders/Labs/Results
Orders:
Orders
05/09/24 19:33
Complete Blood Count/With Diff Urgent
Comprehensive Metabolic Panel Urgent
Influenza A+B Rapid Molecular Urgent
YUMIKO Source: Nasal Swab
Specimen Description:
05/09/24 19:34
COVID-19 Antigen Urgent
Source: Nasal Swab
05/09/24 20:35
Urinalysis Reflex To Culture Urgent
Date Specimen was Collected: 05/09/24
Time Specimen was Collected: 20:34
Urine Microscopic Reflex Cult Urgent
05/09/24 20:41
0.9% Sodium Chloride 1000 ml [Nss] 1,000 ml IV BOLUS
05/09/24 20:42
Ondansetron Injectable [Zofran] 4 mg IV NOW STA
05/09/24 21:56
Acetaminophen [Tylenol] 650 mg PO NOW STA
05/09/24 21:57
CT Abd/pel Without Iv Or Oral Urgent
Comment:
Reason For Exam: fever, painful urination, hx stones
Abnormal Lab Results
05/09/24 05/09/24
19:33 20:35
Abs Immat Gran (auto) 0.1 H 10^3/uL
(0-0.05)
Absolute Neuts (auto) 7.8 H 10^3/uL
(1.4-6.5)
Absolute Lymphs (auto) 0.3 L 10^3/uL
(1.2-3.4)
Absolute Monos (auto) 0.9 H 10^3/uL
(0.1-0.6)
Immature Gran % 0.6 H %
(0-0.5)
Neutrophils % 83.0 H %
(42.2-75.2)
Lymphocytes % 2.8 L %
(20.5-51.1)
Monocytes % 10.0 H %
(1.7-9.3)
Creatinine 0.5 L mg/dL
(0.6-1.0)
Glucose 121 H mg/dl
(70-99)
AST 50 H U/L
(14-36)
ALT 43 H U/L
(0-35)
Urine Ketones 2+ A
(Negative)
Ur Occult Blood Reflex 2+ A
(Negative)
Urine RBC 7-10 A /HPF
(0-2)
05/09/24 19:33
05/09/24 19:33
Vital Signs
Initial and Last Documented VS:
Initial Vital Signs
Temp Pulse Resp BP Pulse Ox
99.0 F 109 18 143/89 99
05/09/24 19:20 05/09/24 19:20 05/09/24 19:20 05/09/24 19:20 05/09/24 19:20
Last Documented Vital Signs
Temp Pulse Resp BP Pulse Ox
98.5 F 94 18 142/73 95
05/09/24 21:46 05/09/24 23:22 05/09/24 23:22 05/09/24 23:22 05/09/24 23:22
<Alicia Covarrubias [employer]IFT SUPERVISOR [employer]ELTING - Last Filed: 05/10/24 01:21>
MDM/Problems Addressed
Differential Diagnosis Includes:
viral illness, UTI, kidney stone
MDM/Problems Addressed:
68-year-old female with history of HTN, left mass ectomy for breast cancer, hysterectomy, presents stating she developed a fever last night of 101, today it was 103.3 and several episodes of vomitingShe took Tylenol at 5:15 PM. She vomited shortly
after taking the Tylenol and has had no vomiting since. Yesterday she had a small amount of diarrhea in the morning and again today in the morning only. She denies chest pain or trouble breathing. She denies abdominal pain.
Temp at this time is 99.4
2 days ago she saw her family doctor for burning with urination and he put her on nitrofurantoin. She has had a total of 4 doses but stopped it after this morning's dose as she got a call back saying her urine was negative.
8:00 pm:
CBC normal
CMP normal
COVID-negative
Flu negative
U/A:
7-10 RBC, 2+ketones, 2+occult blood. No WBC
Abdomen benign, now has a headache
Remains afebrile
11:00 PM:
After IVFs, Tylenol and Zofran, Pt feeling 'a little better,' looks much better.
CT abdomen pelvis radiology report read: IMPRESSION:
Numerous bilateral intrarenal calculi are demonstrated, left greater than right. However, no ureteral calculus, bilaterally, and no hydroureteronephrosis or perinephric stranding to suggest obstructive uropathy. You can get out of here soon
Minor diverticulosis. No evidence of acute diverticulitis. No dilated bowel loops or evidence of bowel obstruction. Mild colonic fecal burden. On
No urinary bladder calculus. There is a tiny focus of gas left anterior nondependent margin of the urinary bladder. Possible considerations include infection by gas producing organism, iatrogenic, or fistulous communication.
Microscopic blood in urine is most likely from renal calculi
Copy of CT report reviewed with patient, given to patient to discuss with her PCP
patient remains comfortable, no vomiting, no diarrhea since arrival, stable for discharge.
<Alicia Covarrubias SHIFT SUPERVISOR [employer]ELTING - Last Filed: 05/10/24 01:21>
*Critical Care Note
Total Time (30-74mins, 75-104mins- exclusive of procedures): Not Applicable
ED Attending Note
<Debra Glez PA-C - Last Filed: 05/09/24 19:29>
-
Portions of this chart may have been created with voice recognition software.� Occasional wrong word or��sound alike� substitutions may have occurred due to the inherent limitations of voice recognition software.
Discharge Plan
Departure
Patient Disposition: Home (Routine Discharge)
Date of Disposition: 05/09/24
Time of Disposition: 23:07
Patient with high blood pressure during this ER visit?: No
Condition: Good
Discharge Problem:
Fever, Gastroenteritis
Instructions: Fever, Adult (DC), Viral Syndrome (DC)
Prescriptions:
New
ondansetron 4 mg tablet,disintegrating
4 mg PO Q8H PRN (Reason: nausea and vomiting) Qty: 10 0RF
No Action
metoprolol succinate 25 mg Tablet Extended Release 24 Hr
25 mg PO DAILY
ergocalciferol (vitamin D2) 1,250 mcg (50,000 unit) Capsule
1,250 mcg PO TH@0800
aspirin 81 mg Capsule
81 mg PO DAILY
clopidogrel 75 mg Tablet
75 mg PO DAILY Qty: 90 3RF
nitroglycerin 0.4 mg tablet, sublingual
0.4 mg sublingual [id number] PRN (Reason: chest pain) Qty: 25 2RF
rosuvastatin 5 mg Tablet
5 mg PO DAILY
Referrals:
Cale Silverio MD [Family Provider] - Call in 1-3 days for appt
Activity Restrictions/Additional Instructions:
As we discussed, your blood work shows nothing worrisome
Your CAT scan shows numerous stones in your kidneys which may explain the microscopic blood in your urine
You most likely have a viral illness with fever and diarrhea
Continue Tylenol and ibuprofen as needed for fever
See your doctor in 5 to 7 days if you are not much improved by then
Interventions
Interventions:
*General Assessment Last Done: 05/09/24 19:20
*ED COVID-19 Vaccine History Last Done: 05/09/24 19:20
*Nursing Disposition Last Done: 05/09/24 23:22
ED- Neurological Assessment Last Done: 05/09/24 20:31
ED-Skin Assessment Last Done: 05/09/24 20:31
Discharge Date and Time
Discharge Date/Time: 05/09/24 23:24
Print Language: WALLISIAN
[2024-05-09 19:42] LABS: % Basophils 0.3 % (0-2); % Eosinophils 3.3 % (0-6); % Immature Granulocytes 0.6 % (0-0.5); % Lymphocytes 2.8 % (20.5-51.1); Absolute Eosinophils 0.3 10^3/uL (0-0.7); Absolute Immature Granulocytes 0.1 10^3/uL (0-0.05); Absolute Lymphocytes 0.3 10^3/uL (1.2-3.4); Absolute Monocytes 0.9 10^3/uL (0.1-0.6); Absolute Neutrophils 7.8 10^3/uL (1.4-6.5); Hematocrit 44.4 % (37.0-47.0); Hemoglobin 15.1 g/dL (12.0-16.0); Mean Corpuscular Hgb 30.5 pg (27.0-31.0); Mean Corpuscular Volume 89.7 fL (81.0-99.0); Mean Platelet Volume 9.6 fL (7.4-10.4); Nucleated Red Blood Cells % 0 %; Platelet Count 181 10^3/uL (130-400); Red Blood Cell Count 4.95 10^6/uL (4.20-5.40); Red Cell Dist. Width 13.3 % (11.5-14.5); White Blood Cell Count 9.4 10^3/uL (4.8-10.8)
[2024-05-09 19:53] LABS: ALT (SGPT) 43 U/L (0-35); AST (SGOT) 50 U/L (14-36); Albumin 4.5 g/dl (3.5-5.0); Alkaline Phosphatase 82 U/L (38-126); Blood Urea Nitrogen 13 mg/dl (7-17); Calcium 9.5 mg/dl (8.4-10.2); Carbon Dioxide 26 mmol/L (22-30); Chloride 102 mmol/L (98-107); Glucose 121 mg/dl (70-99); Potassium 4.2 mmol/L (3.5-5.1); Sodium 135 mmol/L (135-145); Total Bilirubin 0.5 mg/dl (0.2-1.3); Total Protein 7.4 g/dl (6.3-8.2); eGFR > 60.00
[2024-05-09 20:10] LABS: COVID-19 Antigen Negative (Negative)
[2024-05-09 20:41] LABS: Urine Albumin Trace (Neg - Trace); Urine Bilirubin Negative (Negative); Urine Character Clear (Clear); Urine Color Yellow; Urine Glucose Negative (Negative); Urine Ketone 2+ (Negative); Urine Leukocyte Negative (Negative); Urine Nitrite Negative (Negative); Urine Occult Blood 2+ (Negative); Urine Specific Gravity 1.015 (<1.030); Urine Urobilinogen Negative (Neg - 1+)
[2024-05-09] MEDS: NSS 1000 IV (20:43)
[2024-05-09] MEDS: ZOFRAN 4 MG IV (20:50)
[2024-05-09 20:54] LABS: Urine Squamous Cell 16-20 /LPF (Few)
[2024-05-09 20:55] LABS: Urine Granular Cast 0-2 /LPF (0)
[2024-05-09] MEDS: TYLENOL 650 MG PO (22:23)
== END 2024-05-09 23:24 | disposition home or self-care (01) ==
LOC: EMR 19:08
PROVIDERS: Physician Assistant; Registered Nurse; EMERGENCY PHYSICIAN Student in an Organized Health Care Education/Training Program; FAMILY PHYSICIAN Family Medicine
DX: K52.9 Noninfective gastroenteritis and colitis, unspecified (principal); R50.9 Fever, unspecified; Z11.52 Encounter for screening for COVID-19; N20.0 Calculus of kidney
CPT/HCPCS: 99284; 96374; 96361; 74176; 80053; 81003; 81015; 85025; 87502; 87811

== ENCOUNTER 2024-08-05 08:00 | Emergency (ER) | payer MEDICARE, OTHER, SELFPAY ==
[2024-08-05 08:02] VITALS: BP 200/100
[2024-08-05 08:35] VITALS: BMI 25.4
[2024-08-05] MEDS: DILAUDID 1 MG IV (08:38)
[2024-08-05] MEDS: ZOFRAN 4 MG IV (08:38)
[2024-08-05] MEDS: NSS 1000 IV (08:39)
[2024-08-05 08:41] VITALS: BP 204/90
--- NOTE | 2024-08-05 08:42 | ED.GENMED ---
History of Present Illness
General
Chief Complaint: Flank Pain
Source: patient and spouse
Exam Limitations: none
Time Seen by Provider: 08/05/24 08:21
History of Present Illness
History of Present Illness:
68-year-old female presents with acute flank pain that began at 530 this morning. She has a history of kidney stones and states that this is similar to her previous kidney stones. She admits to nausea and vomiting. The patient states that the
pain sort of radiates around toward the front. No fevers. No obvious hematuria or dysuria. states that she recently had a stent and she was advised not to use any ibuprofen because of her blood thinners.
Past History
Past History
ED Past Medical History: CAD, Cancer (Breast carcinoma), HTN and Other (Kidney stone)
ED Past Surgical History: Other (Left mastectomy with reconstruction and breast implant)
Social History
Tobacco: Non-smoker
Alcohol: None
Drug: None
Living: with family
Employment: Employed
Family History
Family History: Unable to obtain
Phy Exam
Physical Exam
Physical Exam:
CONSTITUTIONAL Patient alert and oriented to person, place and time. Mild pain distress. Vital signs reviewed.
HEAD atraumatic, normocephalic.
EYES eyelids normal to inspection, Extraocular muscles intact, Conjunctiva normal, Sclera normal.
NECK normal range of motion, Trachea midline, no jugular venous distention.
RESPIRATORY CHEST No respiratory distress noted, Chest expansion equal, Bilateral breath sounds clear.
CARDIOVASCULAR regular rate and rhythm, Heart sounds normal.
ABDOMEN abdomen nontender, Bowel sounds normal. No distention.
BACK normal inspection, no obvious deformities, no CVA tenderness
UPPER EXTREMITY range of motion normal, Motor strength normal, no cyanosis, no edema.
LOWER EXTREMITY range of motion normal, Motor strength normal, no cyanosis, no edema.
NEURO Speech normal, No focal motor deficits, Lexie coma scale 15, Memory normal, Cranial Nerves intact to screening exam.
SKIN skin warm, dry, and normal in color.
Course
Orders/Labs/Results
Orders:
Orders
08/05/24 08:21
CT Abd/pel Without Iv Or Oral Urgent
Comment:
Reason For Exam: L flank pain
08/05/24 08:26
HYDROmorphone [Dilaudid] 1 mg IV NOW STA
Ondansetron Injectable [Zofran] 4 mg IV NOW STA
08/05/24 08:29
0.9% Sodium Chloride 1000 ml [Nss] 1,000 ml IV BOLUS
08/05/24 08:43
Basic Metabolic Panel Urgent
08/05/24 08:44
Complete Blood Count/With Diff Urgent
Urinalysis Reflex To Culture Urgent
Date Specimen was Collected: 08/05/24
Time Specimen was Collected: 08:24
Urine Microscopic Reflex Cult Urgent
Abnormal Lab Results
08/05/24 08/05/24
08:43 08:44
WBC 13.7 H 10^3/uL
(4.8-10.8)
MCH 31.1 H pg
(27.0-31.0)
Abs Immat Gran (auto) 0.1 H 10^3/uL
(0-0.05)
Absolute Neuts (auto) 10.7 H 10^3/uL
(1.4-6.5)
Absolute Monos (auto) 1.0 H 10^3/uL
(0.1-0.6)
Neutrophils % 77.9 H %
(42.2-75.2)
Lymphocytes % 10.5 L %
(20.5-51.1)
Carbon Dioxide 21 L mmol/L
(22-30)
Glucose 122 H mg/dl
(70-99)
Ur Occult Blood Reflex 2+ A
(Negative)
Urine RBC 16-20 A /HPF
(0-2)
Urine Albumin (Reflex) 1+ A
(Neg - Trace)
08/05/24 08:44
08/05/24 08:43
Vital Signs
Initial and Last Documented VS:
Initial Vital Signs
Temp Pulse Resp BP Pulse Ox
97.6 F 64 16 200/100 97
08/05/24 08:02 08/05/24 08:02 08/05/24 08:02 08/05/24 08:02 08/05/24 08:02
Last Documented Vital Signs
Temp Pulse Resp BP Pulse Ox
97.6 F 61 16 159/77 96
08/05/24 08:48 08/05/24 08:48 08/05/24 08:48 08/05/24 08:48 08/05/24 08:48
MDM/Problems Addressed
MDM/Problems Addressed:
Acute nephrolithiasis
*Radiology
Radiology exam reviewed: preliminary read by ED provider (Nephrolithiasis noted) and radiology read reviewed
*Pulse Oximetry
Patient hypoxic: no
*Critical Care Note
Total Time (30-74mins, 75-104mins- exclusive of procedures): Not Applicable
Data Reviewed
Review of Other/Old Records Reveals: Discharge Summary (Discharge summary reviewed from September 2023 reviewed. Patient here for LAD stent)
Source: patient and family
Prescriptions/Medications Considered But Not Given:
Consider Toradol but in light of recent stent hold off for now
Patient Management
Escalation/DeEscalation of care consider admission/obs:
68-year-old female who presents with flank pain. Found to have kidney stones. Feels better on reassessment. Will refer to urology for outpatient management follow-up. Urinalysis does not suggest infection
ED Attending Note
-
Portions of this chart may have been created with voice recognition software.� Occasional wrong word or��sound alike� substitutions may have occurred due to the inherent limitations of voice recognition software.
Discharge Plan
Departure
Patient Disposition: Home (Routine Discharge)
Date of Disposition: 08/05/24
Time of Disposition: 10:24
Patient with high blood pressure during this ER visit?: Yes
Discharge Problem:
Ureterolithiasis
Instructions: Kidney Stones (DC), How to Strain Your Urine, BLOOD PRESSURE, Narcotic Pain Medication
Prescriptions:
New
hydrocodone-acetaminophen 5-325 mg tablet
2 tab PO Q6H PRN (Reason: Pain) Qty: 15 0RF
ondansetron 4 mg tablet,disintegrating
4 mg PO Q8H PRN (Reason: nausea and vomiting) Qty: 20 0RF
No Action
metoprolol succinate 25 mg Tablet Extended Release 24 Hr
25 mg PO DAILY
ergocalciferol (vitamin D2) 1,250 mcg (50,000 unit) Capsule
1,250 mcg PO TH@0800
aspirin 81 mg Capsule
81 mg PO DAILY
clopidogrel 75 mg Tablet
75 mg PO DAILY Qty: 90 3RF
nitroglycerin 0.4 mg tablet, sublingual
0.4 mg sublingual [id number] PRN (Reason: chest pain) Qty: 25 2RF
rosuvastatin 5 mg Tablet
5 mg PO DAILY
ondansetron 4 mg tablet,disintegrating
4 mg PO Q8H PRN (Reason: nausea and vomiting) Qty: 10 0RF
Referrals:
Damián Wu MD [Active] -
Cale Silverio MD [Family Provider] -
Activity Restrictions/Additional Instructions:
Return immediately for intractable vomiting, intractable pain, fevers, changes in mentation or any other concerns. Please drink plenty of fluids. Please see urology in the next 3 to 5 days for follow-up and reevaluation.
Interventions
Interventions:
*Risk Screen - Suicide Last Done: 08/05/24 08:02
*General Assessment Last Done: 08/05/24 08:02
*Neglect/Abuse Screening Last Done: 08/05/24 08:48
*ED- Fall Risk Assessment Last Done: 08/05/24 08:48
*ED COVID-19 Vaccine History Last Done: 08/05/24 08:02
VY-Uaxpzl-Fjyxlxiawy Assessment Last Done: 08/05/24 08:48
ED-Female Genitourinary Assessment Last Done: 08/05/24 08:48
Discharge Date and Time
Print Language: ITALIAN
[2024-08-05 08:47] VITALS: BP 159/77
[2024-08-05 08:48] VITALS: BP 159/77
[2024-08-05 08:52] LABS: % Basophils 0.4 % (0-2); % Eosinophils 3.5 % (0-6); % Immature Granulocytes 0.4 % (0-0.5); % Lymphocytes 10.5 % (20.5-51.1); % Monocytes 7.3 % (1.7-9.3); % Neutrophils 77.9 % (42.2-75.2); Absolute Basophils 0.1 10^3/uL (0-0.2); Absolute Eosinophils 0.5 10^3/uL (0-0.7); Absolute Immature Granulocytes 0.1 10^3/uL (0-0.05); Absolute Lymphocytes 1.4 10^3/uL (1.2-3.4); Absolute Neutrophils 10.7 10^3/uL (1.4-6.5); Hematocrit 43.8 % (37.0-47.0); Hemoglobin 15.3 g/dL (12.0-16.0); Mean Corp Hgb Conc. 34.9 g/dL (33.0-37.0); Mean Corpuscular Hgb 31.1 pg (27.0-31.0); Mean Platelet Volume 9.5 fL (7.4-10.4); Nucleated Red Blood Cells % 0 %; Platelet Count 239 10^3/uL (130-400); Red Blood Cell Count 4.92 10^6/uL (4.20-5.40); Red Cell Dist. Width 13.2 % (11.5-14.5); Urine Albumin 1+ (Neg - Trace); Urine Bilirubin Negative (Negative); Urine Character Clear (Clear); Urine Color Yellow; Urine Glucose Negative (Negative); Urine Ketone Negative (Negative); Urine Leukocyte Negative (Negative); Urine Nitrite Negative (Negative); Urine Occult Blood 2+ (Negative); Urine Specific Gravity 1.015 (<1.030); Urine Urobilinogen Negative (Neg - 1+); White Blood Cell Count 13.7 10^3/uL (4.8-10.8)
[2024-08-05 08:59] LABS: Urine Red Blood Cell 16-20 /HPF (0-2); Urine Squamous Cell 0-2 /LPF (Few); Urine White Cell 0-2 /HPF (0-5)
[2024-08-05 09:05] VITALS: BP 143/98
[2024-08-05 09:05] LABS: Blood Urea Nitrogen 17 mg/dl (7-17); Calcium 10.1 mg/dl (8.4-10.2); Carbon Dioxide 21 mmol/L (22-30); Chloride 107 mmol/L (98-107); Estimated Creatinine Clearance 65 ml/min; Glucose 122 mg/dl (70-99); Potassium 3.9 mmol/L (3.5-5.1); Sodium 139 mmol/L (135-145); eGFR > 60.00
[2024-08-05 10:00] VITALS: BP 151/76
== END 2024-08-05 10:37 | disposition home or self-care (01) ==
LOC: EMR 08:00
PROVIDERS: EMERGENCY PHYSICIAN Emergency Medicine; FAMILY PHYSICIAN Family Medicine
DX: N20.2 Calculus of kidney with calculus of ureter (principal); I10 Essential (primary) hypertension; I25.10 Atherosclerotic heart disease of native coronary artery without angina pectoris; Z85.3 Personal history of malignant neoplasm of breast; Z90.12 Acquired absence of left breast and nipple
CPT/HCPCS: 96374; 96375; 96361; 99284; 74176; 80048; 81003; 81015; 85025

== ENCOUNTER → 2024-09-05 09:52 | Outpatient (REF) | payer MEDICARE, OTHER, SELFPAY | LOC: HWRAD 09:52 | PROVIDERS: ATTENDING PHYSICIAN Specialist; FAMILY PHYSICIAN Family Medicine | DX: N20.1 Calculus of ureter (principal) | CPT/HCPCS: 74018 ==

== ENCOUNTER 2024-09-17 19:57 | Emergency (ER) | payer MEDICARE, OTHER, SELFPAY ==
[2024-09-17 19:58] VITALS: BP 164/99
[2024-09-17 20:21] LABS: % Basophils 0.4 % (0-2); % Eosinophils 3.4 % (0-6); % Immature Granulocytes 0.4 % (0-0.5); % Lymphocytes 11.9 % (20.5-51.1); % Monocytes 8.4 % (1.7-9.3); % Neutrophils 75.5 % (42.2-75.2); Absolute Eosinophils 0.4 10^3/uL (0-0.7); Absolute Lymphocytes 1.3 10^3/uL (1.2-3.4); Absolute Monocytes 0.9 10^3/uL (0.1-0.6); Absolute Neutrophils 8.1 10^3/uL (1.4-6.5); Hemoglobin 14.6 g/dL (12.0-16.0); Mean Corp Hgb Conc. 34.8 g/dL (33.0-37.0); Mean Corpuscular Hgb 30.9 pg (27.0-31.0); Mean Platelet Volume 9.7 fL (7.4-10.4); Nucleated Red Blood Cells % 0 %; Platelet Count 216 10^3/uL (130-400); Red Blood Cell Count 4.72 10^6/uL (4.20-5.40); Red Cell Dist. Width 12.9 % (11.5-14.5); White Blood Cell Count 10.8 10^3/uL (4.8-10.8)
[2024-09-17 20:28] LABS: Urine Albumin 1+ (Neg - Trace); Urine Bilirubin Negative (Negative); Urine Character Clear (Clear); Urine Color Yellow; Urine Glucose Negative (Negative); Urine Ketone Negative (Negative); Urine Leukocyte 1+ (Negative); Urine Nitrite Negative (Negative); Urine Occult Blood 2+ (Negative); Urine Urobilinogen Negative (Neg - 1+)
[2024-09-17 20:34] LABS: ALT (SGPT) 23 U/L (0-35); AST (SGOT) 24 U/L (14-36); Albumin 4.6 g/dl (3.5-5.0); Alkaline Phosphatase 72 U/L (38-126); Blood Urea Nitrogen 12 mg/dl (7-17); Calcium 9.9 mg/dl (8.4-10.2); Carbon Dioxide 24 mmol/L (22-30); Chloride 106 mmol/L (98-107); Glucose 150 mg/dl (70-99); Potassium 3.8 mmol/L (3.5-5.1); Sodium 140 mmol/L (135-145); Total Bilirubin 0.5 mg/dl (0.2-1.3); Total Protein 7.2 g/dl (6.3-8.2); eGFR > 60.00
[2024-09-17 20:47] LABS: Urine Squamous Cell >30 /LPF (Few)
[2024-09-17 20:48] LABS: Urine Bacteria Few (Negative); Urine Hyaline Cast 0-2 /LPF (0-2)
[2024-09-17 22:09] VITALS: BMI 26.5
[2024-09-17 22:16] VITALS: BP 156/87
[2024-09-17 23:00] VITALS: BP 141/74
--- NOTE | 2024-09-17 23:43 | ED.GENMED ---
History of Present Illness
General
Chief Complaint: Flank Pain
Source: patient, spouse, previous radiology exam (CT abdomen pelvis August 05 showing 4.5 mm proximal left ureteral calculus with moderate hydronephrosis. KUB film September 05 showing bilateral intrarenal stones but previous left proximal ureteric
stone not visualized) and previous hospital records (ED visit August 05 where patient presented with acute left flank pain.)
Exam Limitations: none
Time Seen by Provider: 09/17/24 22:13
Nursing documentation reviewed up to this point in time: agreed with
History of Present Illness
History of Present Illness:
This is a 68-year-old woman who has history of kidney stones who initially presented to this ED August 05 with complaints of left flank pain, nausea and vomiting. CAT scan showed a 4.5 mm proximal left ureteral stone with moderate hydronephrosis.
She was discharged to home with prescription for Zofran, Vicodin. Patient states flank pain has pretty much resolved but she continues with intermittent lower abdominal discomfort, bloating and over the past day or 2 has noticed dysuria as well as
decreased urine output despite drinking a fair amount of water on a daily basis. She also noticed a low-grade fever today with Tmax of 100.8.
She has been in touch with urology and underwent outpatient KUB film September 05 which noted previous proximal left ureteral stone is now not identified.
Patient states thus far she has not passed this stone.
She admits to feeling somewhat constipated as well.
Past History
Past History
ED Past Medical History: CAD, Cancer (Breast carcinoma), HTN, Hypercholesterolemia, Psychiatric and Other (Kidney stone)
ED Past Surgical History: Cardiac (PTCA with stent LAD September 2023), Cholecystectomy, and Other (Left mastectomy with reconstruction and breast implant)
Social History
Tobacco: Non-smoker
Alcohol: None
Drug: None
Living: with family
Employment: Retired
Family History
Family History: Other (Noncontributory)
Phy Exam
Physical Exam
Physical Exam:
GENERAL: 68-year-old woman appears her stated age, awake and alert, pleasant, appears in no acute distress. is accompanying.
EYE: anicteric
NECK: Supple, nontender, no meningismus, no significant adenopathy.
ENT: oral mucosa is moist. No rhinorrhea.
CARDIAC: Regular rate and rhythm. no murmur.
LUNGS: Clear breath sounds bilaterally, no acute respiratory distress, no wheezes/rales/rhonchi
ABDOMEN: Soft, nondistended, minimal generalized tenderness to the lower abdomen with the palpation only, no r/g, no cvat. normoactive BS.
NEUROLOGICAL: Alert and oriented x3, no focal neuro deficits. Gait is smyth and steady.
SKIN: Warm and dry, normal color, skin intact. No rash.
MUSCULOSKELETAL: No C/C/E. peripheral pulses are full and equal b/l. No palpable tenderness.
PSYCH: Normal and appropriate interaction.
Course
Orders/Labs/Results
Orders:
Orders
09/17/24 20:12
Complete Blood Count/With Diff Urgent
Comprehensive Metabolic Panel Urgent
Urinalysis Reflex To Culture Urgent
Date Specimen was Collected: 09/17/24
Time Specimen was Collected: 20:02
Urine Microscopic Reflex Cult Urgent
Urine Culture Urgent
[facility]UMIKO Source: U
Specimen Description:
Date Specimen was Collected: 09/17/24
Time Specimen was Collected: 20:02
09/17/24 22:34
Renal & Bladder US [US Renal With Bladder] Urgent
Comment:
Reason For Exam: Intermittent L flank pain. hx L ureteric stone
09/18/24 00:29
Amoxicillin 875 mg/Clav 125 mg [Augmentin 875 mg/125 mg] 1 tablet PO NOW STA
Abnormal Lab Results
09/17/24
20:12
Absolute Neuts (auto) 8.1 H 10^3/uL
(1.4-6.5)
Absolute Monos (auto) 0.9 H 10^3/uL
(0.1-0.6)
Neutrophils % 75.5 H %
(42.2-75.2)
Lymphocytes % 11.9 L %
(20.5-51.1)
Creatinine 0.5 L mg/dL
(0.6-1.0)
Glucose 150 H mg/dl
(70-99)
Ur Occult Blood Reflex 2+ A
(Negative)
Leukocyte Esterase Rfl 1+ A
(Negative)
Urine RBC 7-10 A /HPF
(0-2)
Urine WBC (Reflex) 11-15 A /HPF
(0-5)
Urine Bacteria (Reflex) Few A
(Negative)
Urine Albumin (Reflex) 1+ A
(Neg - Trace)
09/17/24 20:12
09/17/24 20:12
Vital Signs
Initial and Last Documented VS:
Initial Vital Signs
Temp Pulse Resp BP Pulse Ox
99.4 F 80 19 164/99 95
09/17/24 19:58 09/17/24 19:58 09/17/24 19:58 09/17/24 19:58 09/17/24 19:58
Last Documented Vital Signs
Temp Pulse Resp BP Pulse Ox
99.0 F 80 19 141/74 95
09/17/24 22:16 09/17/24 19:58 09/17/24 19:58 09/17/24 23:00 09/17/24 19:58
MDM/Problems Addressed
Differential Diagnosis Includes:
Concern for persistent left ureteric stone, concern for UTI, pyelonephritis. Other consideration is constipation, colitis, diverticulitis.
Overall well in appearance. Currently afebrile.
Labs are reassuring with normal white blood cell count, normal chemistries with normal BUN and creatinine.
Urinalysis concerning for potential UTI with few bacteria, 11-15 WBCs but is a somewhat contaminated specimen with greater than 30 squamous epithelial cells.
Will check renal ultrasound with bladder.
Chronic conditions affecting care: Kidney disease (Known kidney stone/left ureteric stone)
*Radiology
Radiology exam reviewed: radiology read reviewed
*Pulse Oximetry
Patient hypoxic: no
*Critical Care Note
Total Time (30-74mins, 75-104mins- exclusive of procedures): Not Applicable
Update Note
Update Note:
00:30
Patient remains afebrile, continues to deny flank pain and abdomen is soft without appreciable tenderness.
Ultrasound shows left hydronephrosis. Concerning for persistent obstruction of the left ureter.
It is reassuring that patient has had no return of left flank pain but with complaints of dysuria, concern for potential UTI thus will initiate a course of Augmentin.
Allergies reviewed, patient states she is not allergic to penicillin.
Discussed importance of staying well-hydrated on a daily basis.
Prompt follow-up with urology for recheck.
Strict return precautions discussed.
ED Attending Note
-
Portions of this chart may have been created with voice recognition software.� Occasional wrong word or��sound alike� substitutions may have occurred due to the inherent limitations of voice recognition software.
Discharge Plan
Departure
Patient Disposition: Home (Routine Discharge)
Date of Disposition: 09/18/24
Time of Disposition: 00:32
Patient with high blood pressure during this ER visit?: No
Condition: Good
Discharge Problem:
Hydronephrosis, left, Urinary tract infection symptoms
Instructions: Kidney Stones (DC)
Prescriptions:
New
amoxicillin-pot clavulanate 875-125 mg tablet
1 tab PO BID Qty: 14 0RF
No Action
metoprolol succinate 25 mg Tablet Extended Release 24 Hr
25 mg PO DAILY
ergocalciferol (vitamin D2) 1,250 mcg (50,000 unit) Capsule
1,250 mcg PO TH@0800
aspirin 81 mg Capsule
81 mg PO DAILY
clopidogrel 75 mg Tablet
75 mg PO DAILY Qty: 90 3RF
nitroglycerin 0.4 mg tablet, sublingual
0.4 mg sublingual [id number] PRN (Reason: chest pain) Qty: 25 2RF
rosuvastatin 5 mg Tablet
5 mg PO DAILY
ondansetron 4 mg tablet,disintegrating
4 mg PO Q8H PRN (Reason: nausea and vomiting) Qty: 10 0RF
hydrocodone-acetaminophen 5-325 mg tablet
2 tab PO Q6H PRN (Reason: Pain) Qty: 15 0RF
ondansetron 4 mg tablet,disintegrating
4 mg PO Q8H PRN (Reason: nausea and vomiting) Qty: 20 0RF
tamsulosin [Flomax] 0.4 mg capsule
0.4 mg PO HS Qty: 14 0RF
Referrals:
Damián Wu MD [Active] - Call in 1-3 days for appt
Cale Silverio MD [Family Provider] -
Interventions
Interventions:
*Risk Screen - Suicide Last Done: 09/17/24 20:01
*General Assessment Last Done: 09/17/24 20:01
*Neglect/Abuse Screening Last Done: 09/17/24 20:01
*ED- Fall Risk Assessment Last Done: 09/17/24 23:49
*ED COVID-19 Vaccine History Last Done: 09/17/24 20:01
NI-Wlhcri-Vxnmqvneau Assessment Last Done: 09/17/24 22:09
ED-Female Genitourinary Assessment Last Done: 09/17/24 22:09
Discharge Date and Time
Print Language: LIBERIAN
[2024-09-17 23:47] VITALS: BP 142/74
[2024-09-18] VITALS: BP 141/76
[2024-09-18] MEDS: AUGMENTIN 875 MG/125 MG 1 TABLET PO (00:40)
[2024-09-18] MEDS: TYLENOL 1000 MG PO (00:41)
== END 2024-09-18 00:47 | disposition home or self-care (01) ==
LOC: EMR 19:57
PROVIDERS: Emergency Medicine; EMERGENCY PHYSICIAN Emergency Medicine; FAMILY PHYSICIAN Family Medicine
DX: N13.30 Unspecified hydronephrosis (principal); R30.0 Dysuria; E78.00 Pure hypercholesterolemia, unspecified; I10 Essential (primary) hypertension; I25.10 Atherosclerotic heart disease of native coronary artery without angina pectoris; Z95.5 Presence of coronary angioplasty implant and graft; Z90.49 Acquired absence of other specified parts of digestive tract; Z87.442 Personal history of urinary calculi
CPT/HCPCS: 99283; 76770; 80053; 81003; 81015; 85025; 87086

== ENCOUNTER 2024-09-18 21:09 | Inpatient (IN) | payer MEDICARE, OTHER, SELFPAY ==
[2024-09-18] VITALS (7 sets, daily range): BP systolic 123–167; BP diastolic 77–93; BMI 27.1
--- NOTE | 2024-09-18 20:18 | HPS.HSE ---
Family Physician
-
Family Physician: Cale Silverio
Chief Complaint
-
Groin and pelvic pain
History of Present Illness
This is a 68 y.o old female with past medical history significant for hypertension, nephrolithiasis, history of CAD status post cardiac stents who presents to the emergency department with recurrent flank pain and fevers.
Patient was seen on August 05 with left-sided flank pain and at that time had a 4.4 mm stone. She was treated conservatively. She had mild hydronephrosis. She had a follow-up x-ray which did not show the stone with the presumption of passage of
stone. She represented to the emergency department again yesterday with left-sided flank pain. She had ultrasound which shows persistent hydronephrosis not worsened compared to prior. UA has some blood and some white cells but not read primarily
positive. She was treated with analgesia and started on oral antibiotics and she was discharged home.
She reported that now the pain has migrated to the left lower groin as well as the pelvic region. She reports dysuria for the last 2 days. She has not had any hematuria. She had a fever of 101.9 at home. She reported that she had a similarly
elevated fever yesterday at home but when she arrived in the emergency department she had defervesced. She did not take any antipyretics.
Initial vital signs in the emergency department showed a blood pressure of 167/90 with a pulse of 82 and she satting 98% on room air.
UA is positive for 4+ blood, RBCs 2+ leukocyte esterase and WBCs.
Peripherally CBC remarkable for a white count of 13.7 otherwise normal hemoglobin and platelet. Electrolytes were normal. BUN/creatinine were normal.
Medical History
Past Medical History
Past Medical History: Reports CAD (Status post tenting), Cancer (History of breast cancer), HTN and Other (Nephrolithiasis)
Additional Past Medical History:
History of C. difficile colitis
Past Surgical History: Reports Cholecystectomy, , Gynocological (Hysterectomy) and Other (Mastectomy, oral surgery)
Social History
Tobacco: Non-smoker
Alcohol: None
Drug: None
Personal:
Living: With Family
Family History
Family History: Not pertinent
Allergies / Home Medications
Allergies reflects when Allergies were last updated in [facility].
Home Medications with original date entered in [facility]
Allergy/Medication List:
Allergies
Allergy/AdvReac Type Severity Reaction Status Date / Time
Tetracyclines Allergy Unknown Unknown Verified 09/18/24 19:27
azithromycin Allergy becomes Verified 09/18/24 19:27
hyper,heart
pounds
cefadroxil [From [facility] [place] Allergy Unknown Verified 09/18/24 19:27
Cephalosporins Allergy Unknown Verified 09/18/24 19:27
doxycycline Allergy facial Verified 09/18/24 19:27
swelling
Home Medications
ergocalciferol (vitamin D2) 1,250 mcg (50,000 unit) capsule 1,250 mcg PO TH@0800 10/07/23
metoprolol succinate 25 mg tablet,extended release 24 hr 25 mg PO DAILY 10/07/23
aspirin 81 mg capsule 81 mg PO DAILY 10/18/23
clopidogrel 75 mg tablet 75 mg PO DAILY #90 tabs 10/19/23
nitroglycerin 0.4 mg sublingual tablet 0.4 mg sublingual [id number] PRN chest pain #25 tabs 10/19/23
ondansetron 4 mg disintegrating tablet 4 mg PO Q8H PRN nausea and vomiting #10 tabs 05/09/24
rosuvastatin 5 mg tablet 5 mg PO DAILY 05/09/24
hydrocodone 5 mg-acetaminophen 325 mg tablet 2 tab PO Q6H PRN Pain #15 tabs 08/05/24
ondansetron 4 mg disintegrating tablet 4 mg PO Q8H PRN nausea and vomiting #20 tabs 08/05/24
tamsulosin 0.4 mg capsule (Flomax) 0.4 mg PO HS #14 caps 08/05/24
amoxicillin 875 mg-potassium clavulanate 125 mg tablet 1 tab PO BID #14 tabs 09/18/24
Review of Systems
-
Constitutional: Reports Fever and Chills
EENT: Reports No Symptoms
Respiratory: Reports No Symptoms
Cardiac: Reports No Symptoms
Abdomen/GI: Reports No Symptoms
: Reports Flank Pain
Musculoskeletal: Reports No Symptoms
Skin: Reports No Symptoms
Neurological: Reports No Symptoms
Endocrine: Reports No Symptoms
Hematologic/Lymphatic: Reports No Symptoms
Psych: Reports No Symptoms
Physical Exam
Vital Signs
Vital Signs
Temp Pulse Resp BP Pulse Ox
99.0 F 82 18 167/93 99
09/18/24 19:26 09/18/24 19:26 09/18/24 19:26 09/18/24 19:26 09/18/24 19:26
Physical Exam
General: Well Developed, Well Nourished and Conversant
HEENT: NormoCephalic, Anicteric, Moist mucous membranes and Atraumatic
Respiratory: Clear
Cardiac: S1/S2 and Regular Rhythm
Breast: Deferred by me
GI: Soft, Non Tender, Non Distended and Normal Bowel Sounds
Rectal: Deferred by Provider
Genito-urinary: Deferred by me
Musculoskeletal: No Clubbing, No Cyanosis and No Edema
Skin: Warm
Neuro: AO x 3 and Nonfocal/grossly intact
Hematologic/Lymphatic: No Lymphadenopathy
Psych: Calm
Data Reviewed
-
Ultrasound: Report Reviewed by me
Lab Data: Labs Reviewed by me
Old Records: Reviewed
Impression/Plan
-
IMPRESSION:
68-year-old with history of CAD, nephrolithiasis, hypertension and hyperlipidemia presenting to the emergency department with ongoing left-sided flank pain complicated by fever rigors. She had a fever up to 102 at home today. Concern for
obstructive uropathy with pyelonephritis. Patient to be taken to the OR immediately.
PLAN:
Pyelonephritis with Obstructive uropathy - Sepsis
- admit to telemetry
- blood cultures, urine cultures
- IV cefepime 2g q 12
- IV fluid bolus and continued LR
- NPO
- continue tamsulosin
- pain control and antiemetics
- urology aware and taking to OR
- no thinners till tomorrow
CAD
- continue aspirin, plavix (last stent > September 2023)
- continue rosuvostatin
- continue metoprolol with hold parameters
DVT - SCDs for now
Code status - Full code
--- NOTE | 2024-09-18 20:55 | W.PN.UPDATE ---
Update Note
Progress Note Update
see nadya lara discated but h/o 4.4 mm left stoen now hydronephrosis and fauiure of outpatient medical ec]xpulsiontx and abs for op room to place stent and if stable possbly remove stone
--- NOTE | 2024-09-18 20:56 | ED.GENMED ---
History of Present Illness
General
Chief Complaint: Flank Pain
Time Seen by Provider: 09/18/24 20:28
History of Present Illness
History of Present Illness:
68-year-old female with history of kidney stones presenting to the emergency department for concern of infected stone. Patient reports that she has had a left-sided kidney stone since middle of July. She came to the hospital yesterday with
increasing pain and low-grade fever. Patient was noted to be afebrile with reassuring examination, sent home on Augmentin, has been in discussions with urology outpatient. She called urology tonight, with return of fever, left lower abdominal pain
and urinary frequency. Patient instructed by urology to return to the emergency department for concern of infected stone, requiring operative management. Patient on arrival notes that her pain is controlled, notes some pressure in the lower
abdomen. She did not take any antipyretics prior to arrival. Denies vomiting, does note some constipation. Denies additional acute medical complaints.
Past History
Past History
ED Past Medical History: CAD, Cancer (Breast carcinoma), HTN, Hypercholesterolemia, Psychiatric and Other (Kidney stone)
ED Past Surgical History: Cardiac (PTCA with stent LAD September 2023), Cholecystectomy, and Other (Left mastectomy with reconstruction and breast implant)
Social History
Tobacco: Non-smoker
Alcohol: None
Drug: None
Living: with family
Employment: Retired
Family History
Family History: Other (Noncontributory)
Phy Exam
Physical Exam
Physical Exam:
General: Well-appearing, no clinical signs of dehydration, nontoxic and in no acute distress
HEENT: protecting airway
Neck: appears supple
CV: Normal heart rate
Resp: No accessory muscle use, no increased work of breathing
Abd: Soft and non-distended, generalized tenderness to the left lower region of the abdomen with mild distention, no rebound or guarding. No CVA tenderness
Extremities: No deformities, no swelling
Neuro: alert, no focal neurologic deficit
: deferred
Rectal: deferred
Psych: Normal affect
Skin: Intact
Course
Orders/Labs/Results
Orders:
Orders
09/18/24 20:23
Electrocardiogram (*1) Urgent
Reason for Study: Other
Other Reason for Exam: Possible Sepsis
Cardiac Monitoring- Treatment ONCE
EKG- Treatment ONCE
IV Insert/Care/Rem.- Treatment PRN
O2 Therapy [RESP] Urgent
Titrate/Wean O2 to maintain O2 sat greater than (%): 93
Special Instructions: TO MAINTAIN CONTINUOUS O2 SATS > OR = 93%
Pulse Ox/cont/shift [RESP] Urgent
Quantity: 1
Special Instructions: CONTINUOUS
09/18/24 20:46
Complete Blood Count/With Diff Urgent
Comprehensive Metabolic Panel Urgent
Lactic Acid Q4H
Comment: ON ICE, CANCEL 2ND ORDER IF FIRST LACTIC ACID LEVEL <2
Urinalysis Reflex To Culture Urgent
Date Specimen was Collected: 09/18/24
Time Specimen was Collected: 20:23
Blood Culture Q20M
YUMIKO Source: Blood/Venous
Specimen Description:
Comment: Urgent from separate sites. If patient screens positive for possible sepsis
Blood Culture Q20M
YUMIKO Source: Blood/Venous
Specimen Description:
Comment: Urgent from separate sites. If patient screens positive for possible sepsis
09/18/24 20:48
PT/INR [Prothrombin Time] Urgent
09/18/24 20:52
Lidocaine 2% Mpf [Xylocaine Mpf 2%] 100 mg .ROUTE .STK-MED ONE
Ondansetron Injectable [Zofran] 4 mg .ROUTE .STK-MED ONE
Propofol [Diprivan] 20 ml .ROUTE .STK-MED
09/18/24 20:55
Fentanyl Citrate/Pf [Sublimaze] 100 mcg .ROUTE .STK-MED ONE
09/18/24 22:00
Piperacillin/Tazo 3.375 Gram [Zosyn] 3.375 gram in 50 ml IV Q6H
09/19/24 00:30
Lactic Acid Q4H
Comment: ON ICE, CANCEL 2ND ORDER IF FIRST LACTIC ACID LEVEL <2
Vital Signs
Initial and Last Documented VS:
Initial Vital Signs
Temp Pulse Resp BP Pulse Ox
99.0 F 82 18 167/93 99
09/18/24 19:26 09/18/24 19:26 09/18/24 19:26 09/18/24 19:26 09/18/24 19:26
Last Documented Vital Signs
Temp Pulse Resp BP Pulse Ox
98.7 F 82 18 167/93 99
09/18/24 20:37 09/18/24 19:26 09/18/24 19:26 09/18/24 19:26 09/18/24 19:26
MDM/Problems Addressed
MDM/Problems Addressed:
59-year-old female with known history of kidney stones presenting to the emergency department for concern of left-sided infected kidney stone. Vital signs on arrival are significant for mild hypertension.
On exam, patient is resting comfortably, no acute distress or discomfort. She is nontoxic, pain is controlled. On review of EMR, known 4 mm stone with some hydronephrosis. Patient with urinary tract infection symptoms, fevers at home. Urology is
aware of patient, sent in for urgent extraction of stone given concern for infected stone. Plan for laboratory analysis, cultures, antibiotics. Urology at bedside soon after patient's arrival. Case discussed with hospitalist. Patient will go to
the OR tonight.
*Critical Care Note
Total Time (30-74mins, 75-104mins- exclusive of procedures): Not Applicable
ED Attending Note
-
Portions of this chart may have been created with voice recognition software.� Occasional wrong word or��sound alike� substitutions may have occurred due to the inherent limitations of voice recognition software.
Discharge Plan
Departure
Patient Disposition: Admit
Date of Disposition: 09/18/24
Time of Disposition: 20:56
Presentation/result/management discussed w/ accepting MD/DO: Hospitalist
Patient with high blood pressure during this ER visit?: No
Condition: Fair
Discharge Problem:
Urinary tract infection symptoms, Hydronephrosis, left
Prescriptions:
No Action
metoprolol succinate 25 mg Tablet Extended Release 24 Hr
25 mg PO DAILY
ergocalciferol (vitamin D2) 1,250 mcg (50,000 unit) Capsule
1,250 mcg PO TH@0800
aspirin 81 mg Capsule
81 mg PO DAILY
clopidogrel 75 mg Tablet
75 mg PO DAILY Qty: 90 3RF
nitroglycerin 0.4 mg tablet, sublingual
0.4 mg sublingual [id number] PRN (Reason: chest pain) Qty: 25 2RF
rosuvastatin 5 mg Tablet
5 mg PO DAILY
ondansetron 4 mg tablet,disintegrating
4 mg PO Q8H PRN (Reason: nausea and vomiting) Qty: 10 0RF
hydrocodone-acetaminophen 5-325 mg tablet
2 tab PO Q6H PRN (Reason: Pain) Qty: 15 0RF
ondansetron 4 mg tablet,disintegrating
4 mg PO Q8H PRN (Reason: nausea and vomiting) Qty: 20 0RF
tamsulosin [Flomax] 0.4 mg capsule
0.4 mg PO HS Qty: 14 0RF
amoxicillin-pot clavulanate 875-125 mg tablet
1 tab PO BID Qty: 14 0RF
Referrals:
Cale Silverio MD [Family Provider] -
Interventions
Interventions:
*Risk Screen - Suicide Last Done: 09/18/24 19:28
*General Assessment Last Done: 09/18/24 19:28
*Neglect/Abuse Screening Last Done: 09/18/24 19:28
*ED- Fall Risk Assessment Last Done: 09/18/24 20:36
*ED COVID-19 Vaccine History Last Done: 09/18/24 19:28
Discharge Date and Time
Print Language: HEBREW
[2024-09-18 20:59] LABS: Urine Albumin 2+ (Neg - Trace); Urine Bilirubin Negative (Negative); Urine Character Slightly Cloudy (Clear); Urine Color Yellow; Urine Glucose Negative (Negative); Urine Ketone 1+ (Negative); Urine Leukocyte 2+ (Negative); Urine Nitrite Negative (Negative); Urine Occult Blood 4+ (Negative); Urine Urobilinogen Negative (Neg - 1+)
[2024-09-18] MEDS: ZOSYN 50 IV (20:59)
[2024-09-18 21:02] LABS: % Basophils 0.4 % (0-2); % Eosinophils 1.9 % (0-6); % Immature Granulocytes 0.3 % (0-0.5); % Neutrophils 76.4 % (42.2-75.2); Absolute Basophils 0.1 10^3/uL (0-0.2); Absolute Eosinophils 0.3 10^3/uL (0-0.7); Absolute Lymphocytes 1.4 10^3/uL (1.2-3.4); Absolute Monocytes 1.5 10^3/uL (0.1-0.6); Absolute Neutrophils 10.5 10^3/uL (1.4-6.5); Hematocrit 40.6 % (37.0-47.0); Hemoglobin 14.4 g/dL (12.0-16.0); Mean Corp Hgb Conc. 35.5 g/dL (33.0-37.0); Mean Corpuscular Hgb 31.6 pg (27.0-31.0); Mean Platelet Volume 9.6 fL (7.4-10.4); Nucleated Red Blood Cells % 0 %; Platelet Count 212 10^3/uL (130-400); Red Blood Cell Count 4.56 10^6/uL (4.20-5.40); Red Cell Dist. Width 13.1 % (11.5-14.5); White Blood Cell Count 13.7 10^3/uL (4.8-10.8)
[2024-09-18 21:08] LABS: INR 1.07; PT 14.2 Sec (11.4-14.6)
[2024-09-18 21:11] LABS: Lactic Acid 0.8 mmol/L (0.7-2.0)
[2024-09-18 21:13] LABS: Urine Bacteria Few (Negative); Urine Red Blood Cell 80-90 /HPF (0-2); Urine Squamous Cell >30 /LPF (Few); Urine White Cell 16-20 /HPF (0-5)
[2024-09-18 21:16] LABS: ALT (SGPT) 21 U/L (0-35); AST (SGOT) 24 U/L (14-36); Albumin 4.5 g/dl (3.5-5.0); Alkaline Phosphatase 73 U/L (38-126); Blood Urea Nitrogen 11 mg/dl (7-17); Calcium 9.7 mg/dl (8.4-10.2); Carbon Dioxide 22 mmol/L (22-30); Chloride 105 mmol/L (98-107); Estimated Creatinine Clearance 86 ml/min; Glucose 118 mg/dl (70-99); Potassium 4.2 mmol/L (3.5-5.1); Sodium 138 mmol/L (135-145); Total Bilirubin 0.9 mg/dl (0.2-1.3); Total Protein 7.3 g/dl (6.3-8.2); eGFR > 60.00
[2024-09-18] MEDS: FLOMAX 0.4 MG PO (23:14)
[2024-09-18] MEDS: LR 1000 IV (23:14)
[2024-09-18] MEDS: Pyridium 200 MG PO (23:14)
[2024-09-19] VITALS (7 sets, daily range): BP systolic 105–128; BP diastolic 58–79
[2024-09-19 00:49] LABS: Lactic Acid 1.2 mmol/L (0.7-2.0)
[2024-09-19] MEDS: ZOSYN 50 IV ×4 (03:11→21:57)
[2024-09-19 07:20] LABS: Hematocrit 38.9 % (37.0-47.0); Hemoglobin 13.4 g/dL (12.0-16.0); Mean Corp Hgb Conc. 34.4 g/dL (33.0-37.0); Mean Corpuscular Hgb 31.1 pg (27.0-31.0); Mean Corpuscular Volume 90.3 fL (81.0-99.0); Mean Platelet Volume 10.2 fL (7.4-10.4); Platelet Count 202 10^3/uL (130-400); Red Blood Cell Count 4.31 10^6/uL (4.20-5.40); Red Cell Dist. Width 12.9 % (11.5-14.5); White Blood Cell Count 8.2 10^3/uL (4.8-10.8)
[2024-09-19 07:38] LABS: Blood Urea Nitrogen 14 mg/dl (7-17); Calcium 9.5 mg/dl (8.4-10.2); Carbon Dioxide 25 mmol/L (22-30); Chloride 109 mmol/L (98-107); Estimated Creatinine Clearance 86 ml/min; Glucose 183 mg/dl (70-99); Potassium 4.2 mmol/L (3.5-5.1); Sodium 142 mmol/L (135-145); eGFR > 60.00
[2024-09-19] MEDS: CRESTOR 5 MG PO (08:05)
[2024-09-19] MEDS: Pyridium 200 MG PO ×3 (08:05→22:59)
[2024-09-19] MEDS: PLAVIX 75 MG PO (08:05)
[2024-09-19] MEDS: ASPIR LOW (ENTERIC COATED) 81 MG PO (08:05)
[2024-09-19] MEDS: TOPROL XL 25 MG PO (08:05)
[2024-09-19] MEDS: LR 1000 IV ×2 (08:06→16:48)
--- NOTE | 2024-09-19 08:12 | W.PN.HOSP.TC ---
Today's Communication/Plan
-
Continue antibiotic pending cultures
Assessment / Plan
Assessment / Plan
Impression:
68-year-old female with history of CAD, nephrolithiasis, hypertension and hyperlipidemia presenting to the emergency department with ongoing left-sided flank pain complicated by fever rigors. She had a fever up to 102 at home, Concern for
obstructive uropathy with pyelonephritis. Patient emergently taken to the OR by urology s/p ureteroscopy laser stenting, started on antibiotics.
Blood culture and urine culture pending.
Assessment/plan:
Pyelonephritis with Obstructive uropathy - Sepsis
Patient presented to the ER with left-sided flank pain.
Ultrasound abdomen showed:
1. MODERATE LEFT HYDRONEPHROSIS which appears unchanged from 08/05/2024 suggesting a persistent left ureteral obstruction.
2. Large number of nonobstructing left intrarenal calculi.
3. Small number of tiny nonobstructing right intrarenal calculi.
Urine culture, blood culture pending.
Continue night monitor
Continue antibiotic IV Zosyn
Continue IV fliud
Continue tamsulosin
Pain and nausea control
Status post ureteroscopy laser stenting, by urology
09/19
Improved leukocytosis
s/p ureteroscopy laser stenting, started on antibiotics.
Blood culture and urine culture pending.
History of coronary artery
- continue aspirin, plavix (last stent > September 2023)
- continue rosuvostatin
- continue metoprolol with hold parameters
Vitamin D deficiency.
Continue vitamin D supplement
Hypertension.
Continue metoprolol.
Hyperlipidemia.
Continue statin
CODE STATUS: Full code
DVT prophylaxis: SCDs
Diet: cardiac diet
Total time spent on today's encounter was 65 minutes which included time spent in counseling the patient/family regarding diagnosis and treatment plan as listed above, goals of care, and symptom management. Case was discussed with nursing staff,
specialists, and care coordinators/case management. All labs and imaging personally reviewed by me. Remainder the time spent in detailed review of previous records, lab data, imaging, and other medical provider documentation.
Anticipated Discharge: Within 24 hours
Subjective/Interval History
-
Date of Service: September 19, 2024
Patient seen and examined at bedside, denies any chest pain or shortness of breath, no abdominal pain, no nausea, no vomiting, no diarrhea or constipation.
Status post ureteroscopy laser stenting last night.
Objective Data
-
Labs:
Laboratory Results
09/18/24 09/18/24 09/19/24
20:46 20:48 06:44
WBC 13.7 H 8.2
Hgb 14.4 13.4
Hct 40.6 38.9
Plt Count 212 202
PT 14.2
INR 1.07
Sodium 138 142
Potassium 4.2 4.2
Chloride 105 109 H
Carbon Dioxide 22 25
BUN 11 14
Creatinine 0.5 L 0.6
Glucose 118 H 183 H
Calcium 9.7 9.5
Total Bilirubin 0.9
AST 24
ALT 21
Alkaline Phosphatase 73
Vital Signs:
Vital Signs
Temp Pulse Resp BP Pulse Ox
97.9 F 73 16 118/62 96
09/19/24 03:15 09/19/24 08:05 09/19/24 03:15 09/19/24 08:05 09/19/24 03:15
I&O
09/18/24 09/19/24 09/20/24
06:59 06:59 06:59
Intake Total 1660 / 1660
Balance 1660 / 1660
Physical Exam
-
General: Well Developed, Well Nourished, No Apparent Distress and Comfortable
HEENT: Normocephalic, Atraumatic, Moist Mucous Membranes, No Ptosis, PERRLA and Nose Appears Normal
Respiratory: Clear to Auscultation and Non Labored Respirations
Cardiac: Regular Rhythm and S1/S2
Breast: Deferred by me
GI: Soft, Nontender, Nondistended and Normal Bowel Sounds
Genito-urinary: No Costovertebral Tender
Musculoskeletal: No Clubbing, No Cyanosis and No Edema
Skin: Warm
Neuro: Awake, Alert, Oriented, AO x 3 and No Motor Deficits
Psych: Calm
Data Reviewed
-
Diagnostic Radiology: Image personally visualized and interpreted and Report Reviewed by me
CT Scan: Image personally visualized and interpreted and Report Reviewed by me
Ultrasound: Image personally visualized and interpreted and Report Reviewed by me
MRI: Image personally visualized and interpreted and Report Reviewed by me
Medical Tests (Nuc Med, Echo etc): Image personally visualized and interpreted and Report Reviewed by me
Labs: Labs Reviewed by me
Old Records: Reviewed
--- NOTE | 2024-09-19 08:57 | W.PN.URO.CBU ---
Today's Communication / Plan
-
stable from gu point of vire for d/c but await blood cxs d/c up to hospitalist
Assessment / Plan
-
pt stable afebrile and wbc normalized await blood cxs but if neg home on po abs and set up outpatient tx of remaining stones
Diagnosis
-
Date of Service: September 19, 2024
-
Patient Diagnosis:distal ureteral stones with obstruction and sepsis syndrome s/p ureteroscopy laser stenting
Post Op Day: 1
1
Subjective
-
much better afebrile no colic
Objective
-
Vital Signs
Temp Pulse Resp BP Pulse Ox
97.9 F 73 16 118/62 96
09/19/24 03:15 09/19/24 08:05 09/19/24 03:15 09/19/24 08:05 09/19/24 03:15
Intake and Output
09/18/24 09/19/24 09/20/24
06:59 06:59 06:59
Intake Total 1660 / 1660
Balance 1660 / 1660
Intake:
Oral fluids 960 / 960
IV fluids (Total) 700 / 700
Other:
Number of approximated MODERATE 2
amounts of urine
Laboratory Results
09/19/24 06:44
09/19/24 06:44
Review of Systems
-
: Frequency
Physical Exam
-
General - well developed, well nourished, no acute distress
Chest - clear bilaterally
Abdomen - soft, non-tender, positive bowel sounds, no CVAT, no incisional pain or distention
Genitalia - normal
Rectal - normal
Skin - warm & dry with no rash
Neuro - AOx3, no motor deficits
Extremities - no clubbing, no cyanosis, no edema
Incision - clean, dry
Dressing - clean, dry, intact
Care Review
Data Reviewed
Discussed with: Nursing
CT Scan: Image Pers Reviewed
--- NOTE | 2024-09-19 10:31 | CM ---
Addendum entered by Deborah Leung RN 09/19/24 16:05:
IMM reviewed and on chart.
Original Note:
Reviewed the chart notes and spoke with the patient at the bedside. The patient resides with her spouse in a two story home with one step to enter. The patient reports no DME/VN/SNF in the past. The patient confirmed her pharmacy of choice is [facility]
[address]. CM continues to be available to patient/family and is monitoring medical plan for needs at discharge.
Plan: Discharge to home when medically stable. No anticipated needs identified at this time.
[2024-09-19] MEDS: FLOMAX 0.4 MG PO (21:57)
[2024-09-20] MEDS: ZOSYN 50 IV ×2 (03:22→09:31)
[2024-09-20] MEDS: LR 1000 IV (03:22)
[2024-09-20 07:24] LABS: Hematocrit 32.6 % (37.0-47.0); Hemoglobin 11.3 g/dL (12.0-16.0); Mean Corp Hgb Conc. 34.7 g/dL (33.0-37.0); Mean Corpuscular Hgb 31.6 pg (27.0-31.0); Mean Corpuscular Volume 91.1 fL (81.0-99.0); Mean Platelet Volume 10.3 fL (7.4-10.4); Platelet Count 182 10^3/uL (130-400); Red Blood Cell Count 3.58 10^6/uL (4.20-5.40); White Blood Cell Count 7.8 10^3/uL (4.8-10.8)
[2024-09-20 07:28] VITALS: BP 133/65
[2024-09-20 07:45] LABS: Blood Urea Nitrogen 14 mg/dl (7-17); Calcium 8.9 mg/dl (8.4-10.2); Carbon Dioxide 26 mmol/L (22-30); Chloride 111 mmol/L (98-107); Estimated Creatinine Clearance 86 ml/min; Glucose 106 mg/dl (70-99); Potassium 3.7 mmol/L (3.5-5.1); Sodium 142 mmol/L (135-145); eGFR > 60.00
--- NOTE | 2024-09-20 08:17 | W.PN.URO.CBU ---
Today's Communication / Plan
-
ready for d/c from gu point of view
Assessment / Plan
-
pt stable afebrile and wbc normalized blod cxs neg pt has amoxil from er would d/c on amoxil and follow up in my office for definitive stone tx
Diagnosis
-
Date of Service: September 20, 2024
-
Patient Diagnosis:
Post Op Day:
Patient Diagnosis:distal ureteral stones with obstruction and sepsis syndrome s/p ureteroscopy laser stenting
Post Op Day: 2
1
Subjective
-
asx no fever no stent pain
Objective
-
Vital Signs
Temp Pulse Resp BP Pulse Ox
97.9 F 65 16 133/65 97
09/20/24 07:28 09/20/24 07:28 09/20/24 07:28 09/20/24 07:28 09/20/24 07:28
Intake and Output
09/19/24 09/20/24 09/21/24
06:59 06:59 06:59
Intake Total 1660 / 1660 3480 / 3480
Balance 1660 / 1660 3480 / 3480
Intake:
Oral fluids 960 / 960 2280 / 2280
IV fluids (Total) 700 / 700 1100 / 1100
IV piggybacks 100 / 100
Other:
Number of approximated MODERATE 2 7
amounts of urine
Number of approximated LARGE 2
amounts of urine
Laboratory Results
09/20/24 06:49
09/20/24 06:49
Review of Systems
-
: No Symptoms
Physical Exam
-
General - well developed, well nourished, no acute distress
Chest - clear bilaterally
Abdomen - soft, non-tender, positive bowel sounds, no CVAT, no incisional pain or distention
Genitalia - normal
Rectal - normal
Skin - warm & dry with no rash
Neuro - AOx3, no motor deficits
Extremities - no clubbing, no cyanosis, no edema
Incision - clean, dry
Dressing - clean, dry, intact
Care Review
Data Reviewed
Discussed with: Hospitalist
--- NOTE | 2024-09-20 08:59 | W.PN.HOSP.TC ---
Today's Communication/Plan
-
Dc home
Assessment / Plan
Assessment / Plan
Impression:
68-year-old female with history of CAD, nephrolithiasis, hypertension and hyperlipidemia presenting to the emergency department with ongoing left-sided flank pain complicated by fever rigors. She had a fever up to 102 at home, Concern for
obstructive uropathy with pyelonephritis. Patient emergently taken to the OR by urology s/p ureteroscopy laser stenting, started on antibiotics.
Blood culture and urine culture so far no growth, cleared for discharge as per urology.
Assessment/plan:
Pyelonephritis with Obstructive uropathy - Sepsis
Patient presented to the ER with left-sided flank pain.
Ultrasound abdomen showed:
1. MODERATE LEFT HYDRONEPHROSIS which appears unchanged from 08/05/2024 suggesting a persistent left ureteral obstruction.
2. Large number of nonobstructing left intrarenal calculi.
3. Small number of tiny nonobstructing right intrarenal calculi.
Urine culture, blood culture pending.
Continue manager monitoring
Continue antibiotic IV Zosyn
Continue IV fliud
Continue tamsulosin
Pain and nausea control
Status post ureteroscopy laser stenting, by urology
09/19
Improved leukocytosis
s/p ureteroscopy laser stenting, started on antibiotics.
Blood culture and urine culture pending.
09/20
culture so far no growth, cleared for discharge as per urology.
History of coronary artery
- continue aspirin, plavix (last stent > September 2023)
- continue rosuvostatin
- continue metoprolol with hold parameters
Vitamin D deficiency.
Continue vitamin D supplement
Hypertension.
Continue metoprolol.
Hyperlipidemia.
Continue statin
CODE STATUS: Full code
DVT prophylaxis: SCDs
Diet: cardiac diet
Total time spent on today's encounter was 65 minutes which included time spent in counseling the patient/family regarding diagnosis and treatment plan as listed above, goals of care, and symptom management. Case was discussed with nursing staff,
specialists, and care coordinators/case management. All labs and imaging personally reviewed by me. Remainder the time spent in detailed review of previous records, lab data, imaging, and other medical provider documentation.
Anticipated Discharge: Today
Subjective/Interval History
-
Date of Service: September 20, 2024
Patient seen and examined at bedside, denies any chest pain or shortness of breath, no abdominal pain, no nausea, no vomiting, no diarrhea or constipation.
cleared for discharge by urology.
Objective Data
-
Labs:
Laboratory Results
09/20/24
06:49
WBC 7.8
Hgb 11.3 L
Hct 32.6 L
Plt Count 182
Sodium 142
Potassium 3.7
Chloride 111 H
Carbon Dioxide 26
BUN 14
Creatinine 0.6
Glucose 106 H
Calcium 8.9
Vital Signs:
Vital Signs
Temp Pulse Resp BP Pulse Ox
97.9 F 65 16 133/65 97
09/20/24 07:28 09/20/24 07:28 09/20/24 07:28 09/20/24 07:28 09/20/24 07:28
I&O
09/19/24 09/20/24 09/21/24
06:59 06:59 06:59
Intake Total 1660 / 1660 3480 / 3480
Balance 1660 / 1660 3480 / 3480
Physical Exam
-
General: Well Developed, Well Nourished, No Apparent Distress and Comfortable
HEENT: Normocephalic, Atraumatic, Moist Mucous Membranes, No Ptosis, PERRLA and Nose Appears Normal
Respiratory: Clear to Auscultation and Non Labored Respirations
Cardiac: Regular Rhythm and S1/S2
Breast: Deferred by me
GI: Soft, Nontender, Nondistended and Normal Bowel Sounds
Genito-urinary: No Costovertebral Tender
Musculoskeletal: No Clubbing, No Cyanosis and No Edema
Skin: Warm
Neuro: Awake, Alert, Oriented, AO x 3 and No Motor Deficits
Psych: Calm
Data Reviewed
-
Diagnostic Radiology: Image personally visualized and interpreted and Report Reviewed by me
CT Scan: Image personally visualized and interpreted and Report Reviewed by me
Ultrasound: Image personally visualized and interpreted and Report Reviewed by me
MRI: Image personally visualized and interpreted and Report Reviewed by me
Medical Tests (Nuc Med, Echo etc): Image personally visualized and interpreted and Report Reviewed by me
Labs: Labs Reviewed by me
Old Records: Reviewed
--- NOTE | 2024-09-20 09:03 | W.DCSUMMARY ---
Discharge Summary
Discharge Data
Date of Admission: 09/18/24
Date of Discharge: 09/20/24
-
Pending Results: No
Hospital Course
Hospital course
68-year-old female with history of CAD, nephrolithiasis, hypertension and hyperlipidemia presenting to the emergency department with ongoing left-sided flank pain complicated by fever rigors. She had a fever up to 102 at home, Concern for
obstructive uropathy with pyelonephritis. Patient emergently taken to the OR by urology s/p ureteroscopy laser stenting, started on antibiotics.
Blood culture and urine culture so far no growth, cleared for discharge as per urology.
During hospitalization patient was treated from the following
Pyelonephritis with Obstructive uropathy - Sepsis
Patient presented to the ER with left-sided flank pain.
Ultrasound abdomen showed:
1. MODERATE LEFT HYDRONEPHROSIS which appears unchanged from 08/05/2024 suggesting a persistent left ureteral obstruction.
2. Large number of nonobstructing left intrarenal calculi.
3. Small number of tiny nonobstructing right intrarenal calculi.
Urine culture, blood culture pending.
Continue front desk monitor
Continue antibiotic IV Zosyn
Continue IV fliud
Continue tamsulosin
Pain and nausea control
Status post ureteroscopy laser stenting, by urology
09/19
Improved leukocytosis
s/p ureteroscopy laser stenting, started on antibiotics.
Blood culture and urine culture pending.
09/20
culture so far no growth, cleared for discharge as per urology.
History of coronary artery
- continue aspirin, plavix (last stent > September 2023)
- continue rosuvostatin
- continue metoprolol with hold parameters
Vitamin D deficiency.
Continue vitamin D supplement
Hypertension.
Continue metoprolol.
Hyperlipidemia.
Continue statin
CODE STATUS: Full code
DVT prophylaxis: SCDs
Diet: cardiac diet
Total time spent on today's encounter was 40 minutes which included time spent in counseling the patient/family regarding diagnosis and treatment plan as listed above, goals of care, and symptom management. Case was discussed with nursing staff,
specialists, and care coordinators/case management. All labs and imaging personally reviewed by me. Remainder the time spent in detailed review of previous records, lab data, imaging, and other medical provider documentation.
Anticipated Discharge: Today
Discharge Plan
-
Patient Disposition: Home (Routine Discharge)
Discharge Diagnosis/Procedures: Pyelonephritis with Obstructive uropathy
Hypertension
Hyperlipidemia
Vitamin D deficiency
Diet: Low Cholesterol
Activity: As tolerated
Referrals:
Damián Wu MD [Active] - (you have a stent Expect blood in urinary frequency and urgency would like to keep stent few weeks [3- 5 ]and then back to op room off plavix and try and remove remaining stones Call Dr Wu [phone] to
set up futire tx or if questions)
Cale Silverio MD [Family Provider] -
Prescriptions:
New
tamsulosin 0.4 mg Capsule
0.4 mg PO HS Qty: 30 0RF
Continued
metoprolol succinate 25 mg Tablet Extended Release 24 Hr
25 mg PO DAILY
ergocalciferol (vitamin D2) 1,250 mcg (50,000 unit) Capsule
1,250 mcg PO TH@0800
clopidogrel 75 mg Tablet
75 mg PO DAILY Qty: 90 3RF
rosuvastatin 5 mg Tablet
5 mg PO QPM
amoxicillin-pot clavulanate 875-125 mg tablet
1 tab PO BID Qty: 14 0RF
aspirin 81 mg Tablet,Delayed Release (/Ec)
81 mg PO DAILY
ezetimibe [Zetia] 10 mg Tablet
10 mg PO QPM
Discharge Orders:
Discharge Patient (As Directed); Ordered 09/20/24
Ordered By: Fritz Caldeorn
Discharge Date and Time
Print Language: FRISIAN
[2024-09-20] MEDS: PLAVIX 75 MG PO (09:31)
[2024-09-20] MEDS: CRESTOR 5 MG PO (09:31)
[2024-09-20] MEDS: ASPIR LOW (ENTERIC COATED) 81 MG PO (09:31)
[2024-09-20] MEDS: Pyridium 200 MG PO (09:31)
[2024-09-20] MEDS: TOPROL XL 25 MG PO (09:31)
[2024-09-20 11:00] VITALS: BP 134/68
== END 2024-09-20 11:17 | disposition home or self-care (01) | DRG 854 ==
LOC: 2 SOUTH 21:09
PROVIDERS: Emergency Medicine; ADMITTING PHYSICIAN Internal Medicine; ATTENDING PHYSICIAN General Practice; CONSULT PHYSICIAN Specialist; EMERGENCY PHYSICIAN Student in an Organized Health Care Education/Training Program; FAMILY PHYSICIAN Family Medicine
PROC: 0T778DZ Dilation of Left Ureter with Intraluminal Device, Via Natural or Artificial Opening Endoscopic (ICD-10-PCS; 2024-09-19)
PROC: 0TC78ZZ Extirpation of Matter from Left Ureter, Via Natural or Artificial Opening Endoscopic (ICD-10-PCS; 2024-09-19)
DX: A41.9 Sepsis, unspecified organism (principal); N13.6 Pyonephrosis; E55.9 Vitamin D deficiency, unspecified; I10 Essential (primary) hypertension; I25.10 Atherosclerotic heart disease of native coronary artery without angina pectoris; E78.00 Pure hypercholesterolemia, unspecified; Z85.3 Personal history of malignant neoplasm of breast; Z79.02 Long term (current) use of antithrombotics/antiplatelets; Z87.442 Personal history of urinary calculi; Z90.12 Acquired absence of left breast and nipple; Z90.49 Acquired absence of other specified parts of digestive tract; Z90.710 Acquired absence of both cervix and uterus; Z95.5 Presence of coronary angioplasty implant and graft; Z98.82 Breast implant status
CPT/HCPCS: 74018; 76000; 76770; 80048; 80053; 81003; 81015; 83605; 83735; 85025; 85027; 85610; 87040; 87086; 93005; 99285; A4300; C2617

== ENCOUNTER 2024-10-23 06:13 | Day surgery (SDC) | payer MEDICARE, OTHER, SELFPAY ==
[2024-10-23] VITALS (7 sets, daily range): BP systolic 116–168; BP diastolic 69–89; BMI 26.6
[2024-10-23] MEDS: NORMOSOL-R/PLASMALYTE-A 1000 IV (09:19)
== END 2024-10-23 12:28 | disposition home or self-care (01) ==
LOC: SDS 06:13
PROVIDERS: ATTENDING PHYSICIAN Specialist
DX: N20.2 Calculus of kidney with calculus of ureter (principal); N28.89 Other specified disorders of kidney and ureter
CPT/HCPCS: 52356; 74420; 76000; 82365; C1894; C2617; J1580

== ENCOUNTER → 2025-02-12 10:37 | Outpatient (REF) | payer MEDICARE, OTHER, SELFPAY | LOC: MRI 3T 10:37 | PROVIDERS: ATTENDING PHYSICIAN Physician Assistant; FAMILY PHYSICIAN Family Medicine | DX: H90.A22 Sensorineural hearing loss, unilateral, left ear, with restricted hearing on the contralateral side (principal) | CPT/HCPCS: 70553; A9575 ==

== ENCOUNTER → 2025-02-27 12:19 | Outpatient (REF) | payer MEDICARE, OTHER, SELFPAY | LOC: HWRAD 12:19 | PROVIDERS: ATTENDING PHYSICIAN Physician Assistant Medical | DX: M79.674 Pain in right toe(s) (principal) | CPT/HCPCS: 73630; 73660 ==